=== PATIENT | female | born 1990 | race Caucasian/White ===

== ENCOUNTER 2017-05-26 17:56 | Observation (INO) | payer MEDICAID ==
[2017-05-26 17:56] VITALS: BMI 22.6
[2017-05-26 17:59] VITALS: TEMP 97.2; O2SAT 99
--- NOTE | 2017-05-26 18:26 | ED PDOC ---
HPI: Psych/Substance Abuse Time Seen by Provider: 05/26/17 18:04 Chief Complaint (Nursing): Alcohol Ingestion Additional Complaint(s): Patient is a 26 y/o F with hx of multiple visits for alcohol intoxication, [place] She admitted to EMS that she had drunk vodka. Patient smells of alcohol and is unable to provide additional history. Past Medical History Vital Signs: Last Vital Signs Temp 97.2 F L 05/26/17 17:57 Pulse 94 H 05/26/17 17:57 Resp 16 05/26/17 17:57 BP 95/51 L 05/26/17 17:57 Pulse Ox 99 05/26/17 17:57 - Medical History PMH: Anemia, Gastritis, HTN, Kidney Stones, Personality Disorder, Chronic Kidney Disease Denies: Diabetes, Hepatitis, HIV, Seizures, Sexually Transmitted Disease - Family History Family History: States: Unknown Family Hx - Immunization History Hx Tetanus Toxoid Vaccination: Yes (06/03/2013) Hx Influenza Vaccination: Yes Hx Pneumococcal Vaccination: No - Home Medications Home Medications: Ambulatory Orders Medication Instructions Recorded No Known Home Med 01/20/17 - Allergies Allergies/Adverse Reactions: Allergies Allergy/AdvReac Type Severity Reaction Status Date / Time Penicillins Allergy RASH Verified 01/20/17 19:45 Review of Systems Review Of Systems: ROS cannot be obtained secondary to pt's inabilty to answer questions. Physical Exam - Physical Exam Appears: Positive for: Well, Non-toxic (disheveled) Eye Exam: Positive for: Normal appearance, EOMI, PERRL Neck: Positive for: Normal, Supple Cardiovascular/Chest: Positive for: Regular Rate, Rhythm Respiratory: Positive for: Normal Breath Sounds. Negative for: Rhonchi, Stridor , Wheezing Gastrointestinal/Abdominal: Positive for: Soft. Negative for: Tenderness, Mass , Distended Extremity: Positive for: Normal ROM (spontaneous movement of b/l lower and upper extremities) - ECG O2 Sat by Pulse Oximetry: 99 Medical Decision Making Medical Decision Making: No signs of trauma and patient smells of alcohol. Will get CT head to r/o traumatic injury, fs and place patient on continuous monitor. Will monitor for clinical sobriety 19:00 FS:99. Will sign out to Dr. Arango to follow-up CT head, monitor and reevaluate when sober ED OBSERVATION Date of observation admission: 05/26/17 Time of observation admission: 18:26 - Observation admission statement Patient is being placed in observation because:: alcohol abuse - Goals of Observation Goals of observation are:: continue to monitor pending clinical sobriety Disposition - Clinical Impression Clinical Impression: Alcohol abuse with intoxication - Disposition Disposition Time: 18:26 Condition: FAIR
--- NOTE | 2017-05-26 19:15 | ED PDOC ---
- ECG O2 Sat by Pulse Oximetry: 99 Medical Decision Making Medical Decision Makin:00 Pt signed out to me by Dr. Celestino MD. Pending CT Head and clinical sobriety. CT HEAD FINDINGS: Artifacts: Streak artifact degrades image quality. Motion artifact degrades image quality. Brain: Ventricles are normal in size and configuration. There is no midline shift. There are no intra-axial or extra-axial mass lesions or areas of hemorrhage. There are no abnormal fluid collections. [place]-white differentiation is maintained. Ventricles: See above. Bones: Cranial vault is intact. Soft tissues: unremarkable Sinuses: There is no acute sinusitis. Ears and mastoids: Middle ears and mastoids are unremarkable Orbits: Orbital contents are unremarkable. IMPRESSION: Slightly limited by streak and motion, no acute intracranial abnormality Documented by Loan Caal, acting as a scribe for Alverto Arango MD All medical record entries made by the Scribe were at my direction and personally dictated by me. I have reviewed the chart and agree that the record accurately reflects my personal performance of the history, physical exam, medical decision making, and the department course for this patient. I have also personally directed, reviewed, and agree with the discharge instructions and disposition. Disposition Counseled Patient/Family Regarding: Studies Performed, Diagnosis, Need For Followup - Clinical Impression Clinical Impression: Alcohol abuse with intoxication - POA Present On Arrival: None - Disposition Disposition: Routine/Home Disposition Time: 21:45 Condition: IMPROVED
--- NOTE | 2017-05-26 20:19 | CT ---
EXAM: CT Head Without Intravenous Contrast CLINICAL HISTORY: 26 years old, female; Injury or trauma; Injury Unknown head trauma. ETOH; Initial encounter; Concussion / head injury; Consciousness not specified; Additional info: Alcohol abuse, unknown head trauma TECHNIQUE: Axial computed tomography images of the head/brain without intravenous contrast. This CT exam was performed using one or more of the following dose reduction techniques: automated exposure control, adjustment of the mA and/or kV according to patient size, and/or use of iterative reconstruction technique. Coronal and sagittal reformatted images were created and reviewed. EXAM DATE/TIME: 05/26/2017 6:26 PM COMPARISON: There are no prior studies for comparison. FINDINGS: Artifacts: Streak artifact degrades image quality. Motion artifact degrades image quality. Brain: Ventricles are normal in size and configuration. There is no midline shift. There are no intra-axial or extra-axial mass lesions or areas of hemorrhage. There are no abnormal fluid collections. [place]-white differentiation is maintained. Ventricles: See above. Bones: Cranial vault is intact. Soft tissues: unremarkable Sinuses: There is no acute sinusitis. Ears and mastoids: Middle ears and mastoids are unremarkable Orbits: Orbital contents are unremarkable. IMPRESSION: Slightly limited by streak and motion, no acute intracranial abnormality
[2017-05-26 21:56] VITALS: BP 91/55; PULSE 76; RESP 18
== END 2017-05-26 23:57 | disposition home or self-care (01) ==
LOC: H.ER 17:56 → H.EROBSV 18:26
PROVIDERS: ADMIT Emergency Medicine; ATTEND Emergency Medicine
DX: F10.129 Alcohol abuse with intoxication, unspecified (principal); F60.9 Personality disorder, unspecified; I12.9 Hypertensive chronic kidney disease with stage 1 through stage 4 chronic kidney disease, or unspecified chronic kidney disease; N18.9 Chronic kidney disease, unspecified

== ENCOUNTER 2018-03-29 16:58 | Emergency (ER) | payer MEDICAID ==
[2018-03-29 16:58] VITALS: BMI 24.7
[2018-03-29 17:06] VITALS: BP 111/69; PULSE 80; RESP 19; TEMP 98.3; O2SAT 100
--- NOTE | 2018-03-29 18:01 | ED PDOC ---
HPI: Psych/Substance Abuse Time Seen by Provider: 03/29/18 17:09 Chief Complaint (Nursing): Psychiatric Evaluation Chief Complaint (Provider): Hearing voices History Per: Patient History/Exam Limitations: no limitations Onset/Duration Of Symptoms: Hrs Current Symptoms Are (Timing): Gone Now Additional Complaint(s): 27 yo female with no medical problems presents after an episode of hearing voices. Pt states she did not know what they were saying but they stopped. Pt states she has not had similar in the past. Denies psychiatric history. Past Medical History Reviewed: Historical Data, Nursing Documentation, Vital Signs Vital Signs: Last Vital Signs Temp 98.3 F 03/29/18 17:03 Pulse 80 03/29/18 17:03 Resp 19 03/29/18 17:03 BP 111/69 03/29/18 17:03 Pulse Ox 100 03/29/18 17:03 - Medical History PMH: Anemia, Gastritis, Kidney Stones, Personality Disorder, Chronic Kidney Disease Denies: Diabetes, Hepatitis, HIV, HTN, Seizures, Sexually Transmitted Disease - Surgical History Surgical History: No Surg Hx - Family History Family History: States: Unknown Family Hx - Living Arrangements Living Arrangements: With Family - Social History Current smoker - smoking cessation education provided: No - Immunization History Hx Tetanus Toxoid Vaccination: Yes (06/03/2013) Hx Influenza Vaccination: No Hx Pneumococcal Vaccination: No - Home Medications Home Medications: Ambulatory Orders Medication Instructions Recorded Clotrimazole 1% Cream [Lotrimin 1%] 1 appl TP BID #60 g 12/16/17 Permethrin 5% [Permethrin 5% Cream] 60 gm EXT ONCE #1 tube 12/16/17 Amoxicillin 875 mg PO BID #14 tablet 03/16/18 Ibuprofen [Motrin] 600 mg PO Q6 PRN #20 tab 03/16/18 - Allergies Allergies/Adverse Reactions: Allergies Allergy/AdvReac Type Severity Reaction Status Date / Time latex Allergy Verified 03/16/18 05:09 Latex, Natural Rubber Allergy Verified 12/15/17 21:55 Penicillins Allergy RASH Verified 07/11/17 10:04 Review of Systems ROS Statement: Except As Marked, All Systems Reviewed And Found Negative Constitutional: Negative for: Fever, Chills Cardiovascular: Negative for: Chest Pain Respiratory: Negative for: Cough, Shortness of Breath Gastrointestinal: Negative for: Abdominal Pain Genitourinary Female: Negative for: Dysuria Musculoskeletal: Negative for: Neck Pain Physical Exam - Reviewed Nursing Documentation Reviewed: Yes Vital Signs Reviewed: Yes - Physical Exam Appears: Positive for: Well, Non-toxic, No Acute Distress Head Exam: Positive for: ATRAUMATIC, NORMAL INSPECTION, NORMOCEPHALIC Skin: Positive for: Normal Color, Warm, DRY Eye Exam: Positive for: Normal appearance ENT: Positive for: Normal ENT Inspection Neck: Positive for: Normal, Painless ROM Cardiovascular/Chest: Positive for: Regular Rate, Rhythm Respiratory: Positive for: Normal Breath Sounds. Negative for: Accessory Muscle Use, Respiratory Distress Gastrointestinal/Abdominal: Positive for: Normal Exam, Soft Back: Positive for: Normal Inspection Extremity: Positive for: Normal ROM Neurologic/Psych: Positive for: Alert, Oriented - ECG O2 Sat by Pulse Oximetry: 100 Pulse Ox Interpretation: Normal Medical Decision Making Medical Decision Makin - Pt states she is feeling fine and no longer wants to wait for psychiatric evaluation. Denies SI/HI. Alert and oriented x 3. Disposition - Clinical Impression Clinical Impression: Hearing voices - Patient ED Disposition Is Patient to be Admitted: No Counseled Patient/Family Regarding: Diagnosis, Need For Followup - Disposition Disposition: Routine/Home Disposition Time: 18:15 Condition: STABLE
== END 2018-03-29 18:20 | disposition home or self-care (01) ==
LOC: H.ER 16:58
DX: R44.0 Auditory hallucinations (principal); Z00.8 Encounter for other general examination; N18.9 Chronic kidney disease, unspecified; Z87.442 Personal history of urinary calculi; Z88.0 Allergy status to penicillin

== ENCOUNTER 2018-03-30 17:38 | Inpatient (IN) | payer MEDICAID ==
[2018-03-30 17:38] VITALS: BMI 24.7
[2018-03-30 17:44] VITALS: O2SAT 99
--- NOTE | 2018-03-30 18:28 | ED PDOC ---
HPI: Psych/Substance Abuse Time Seen by Provider: 03/30/18 17:40 Chief Complaint (Nursing): Psychiatric Evaluation Chief Complaint (Provider): Psychiatric Evaluation History Per: Patient History/Exam Limitations: no limitations Onset/Duration Of Symptoms: Days Current Symptoms Are (Timing): Still Present Associated Symptoms: denies: Suicidal Thoughts Additional Complaint(s): Enoc Melchor is a 27 year old female with a past medical history of gastritis , renal disease, and psychological disorders, who was brought to the ER for evaluation of auditory hallucinations, s/p being [place] acting strange [place] public [place]. She denies any suicidal or homicidal ideation along with any other medical complaints. Of note, patient was seen in this ED yesterday morning for the same complaint but at the time did not want to stay for a crisis evaluation. Today, she is seen wearing the same clothes as yesterday and is agreeable to evaluation. PMD: none provided Past Medical History Reviewed: Historical Data, Nursing Documentation, Vital Signs Vital Signs: Last Vital Signs Temp 97.4 F L 03/30/18 17:39 Pulse 114 H 03/30/18 17:39 Resp 18 03/30/18 17:39 BP 125/66 03/30/18 17:39 Pulse Ox 99 03/30/18 17:39 - Medical History PMH: Anemia, Gastritis, Kidney Stones, Personality Disorder, Chronic Kidney Disease Denies: Diabetes, Hepatitis, HIV, HTN, Seizures, Sexually Transmitted Disease - Surgical History Surgical History: No Surg Hx - Family History Family History: States: Unknown Family Hx - Social History Current smoker - smoking cessation education provided: No Alcohol: None Drugs: Denies - Immunization History Hx Tetanus Toxoid Vaccination: Yes (06/03/2013) Hx Influenza Vaccination: No Hx Pneumococcal Vaccination: No - Home Medications Home Medications: Ambulatory Orders Medication Instructions Recorded Clotrimazole 1% Cream [Lotrimin 1%] 1 appl TP BID #60 g 12/16/17 Permethrin 5% [Permethrin 5% Cream] 60 gm EXT ONCE #1 tube 12/16/17 Amoxicillin 875 mg PO BID #14 tablet 03/16/18 Ibuprofen [Motrin] 600 mg PO Q6 PRN #20 tab 03/16/18 - Allergies Allergies/Adverse Reactions: Allergies Allergy/AdvReac Type Severity Reaction Status Date / Time latex Allergy Verified 03/16/18 05:09 Latex, Natural Rubber Allergy Verified 12/15/17 21:55 Penicillins Allergy RASH Verified 07/11/17 10:04 Review of Systems ROS Statement: Except As Marked, All Systems Reviewed And Found Negative Psych: Positive for: Other ((+) auditory hallucinations, (-) homicidal ideation) . Negative for: Suicidal ideation Physical Exam - Reviewed Nursing Documentation Reviewed: Yes Vital Signs Reviewed: Yes - Physical Exam Appears: Positive for: Non-toxic, No Acute Distress Head Exam: Positive for: ATRAUMATIC, NORMAL INSPECTION, NORMOCEPHALIC Skin: Positive for: Normal Color, Warm, DRY Eye Exam: Positive for: Normal appearance Neck: Positive for: Normal Cardiovascular/Chest: Positive for: Regular Rate, Rhythm Respiratory: Positive for: Normal Breath Sounds. Negative for: Respiratory Distress Gastrointestinal/Abdominal: Positive for: Normal Exam, Soft. Negative for: Tenderness Back: Positive for: Normal Inspection Extremity: Positive for: Normal ROM. Negative for: Deformity, Swelling Neurologic/Psych: Positive for: Alert, Oriented. Negative for: Motor/Sensory Deficits - Laboratory Results Result Diagrams: 03/30/18 19:15 03/30/18 19:15 - ECG O2 Sat by Pulse Oximetry: 99 (RA) Pulse Ox Interpretation: Normal Medical Decision Making Medical Decision Making: Time: 18:13 Plan: --Alcohol Serum --CMP --Urine Drug Screen --Crisis Evaluation --ED Urine --CBC --Urinalysis Urine is not clean catch and patient currently menstrating. Recommend repeat clean catch. Scribe Attestation: Documented by Marcia Dunham, acting as a scribe for June Merino PA-C. Provider Scribe Attestation: All medical record entries made by the Scribe were at my direction and personally dictated by me. I have reviewed the chart and agree that the record accurately reflects my personal performance of the history, physical exam, medical decision making, and the department course for this patient. I have also personally directed, reviewed, and agree with the discharge instructions and disposition. Disposition - Clinical Impression Clinical Impression: Schizophrenia - Patient ED Disposition Is Patient to be Admitted: Yes Counseled Patient/Family Regarding: Diagnosis, Need For Followup - Disposition Disposition Time: 21:10 Condition: GOOD Instructions: Schizophrenia (DC) Forms: [employer] ([place])
[2018-03-30 19:04] LABS: SQUAMOUS EPITHIAL 16 /hpf (0-5); URINE BACTERIA RARE (<OCC); URINE BILIRUBIN NEGATIVE (NEGATIVE); URINE BLOOD LARGE (NEGATIVE); URINE CLARITY CLOUDY (Clear); URINE COLOR AMBER (YELLOW); URINE GLUCOSE (UA) NEG (Normal); URINE LEUKOCYTE ESTERASE MOD Leu/uL (Negative); URINE PROTEIN 100 mg/dL (NEGATIVE)
[2018-03-30 19:23] LABS: BASO % 0.3 % (0.0-2.0); LYMPH # 1.1 K/uL (1.0-4.3); LYMPH % 10.2 % (20.0-40.0); MEAN CELL VOLUME 84.3 fl (81.0-99.0); MEAN CORPUSCULAR HEMOGLOBIN 27.9 pg (27.0-31.0); MEAN CORPUSCULAR HGB CONC 33.1 g/dL (33.0-37.0); MEAN PLATELET VOLUME 7.6 fl (7.2-11.7); MONO # 0.6 K/uL (0.0-0.8); MONO % 5.3 % (0.0-10.0); NEUT # 8.9 K/uL (1.8-7.0); NEUT % 84.2 % (50.0-75.0); RBC 3.93 Mil/uL (3.80-5.20); RED CELL DISTRIBUTION WIDTH 17.5 % (11.5-14.5); WHITE BLOOD COUNT 10.6 K/uL (4.8-10.8)
[2018-03-30 19:30] LABS: BARBITURATES, UR NEGATIVE (NEGATIVE); BENZODIAZEPINES, UR NEGATIVE (NEGATIVE); OPIATES, UR NEGATIVE (NEGATIVE); PHENCYCLIDINE, UR NEGATIVE (NEGATIVE)
[2018-03-30 19:40] LABS: ALB/GLOB RATIO 1.4 (1.0-2.1); ALBUMIN 4.6 g/dL (3.5-5.0); ALT/SGPT 40 U/L (9-52); AST/SGOT 35 U/L (14-36); BLOOD UREA NITROGEN 14 mg/dl (7-17); CALCIUM 9.6 mg/dL (8.4-10.2); GFR AFRICAN-AMERICAN > 60; GFR NON-AFRICAN AMERICAN > 60
[2018-03-30] MEDS ORDERED: DiphenhydrAMINE 50 mg/ml Inj IM PRN (22:27)
[2018-03-30] MEDS ORDERED: Magnesium Hydroxide Susp 30 ml UD PO PRN (22:27)
[2018-03-30] MEDS ORDERED: Alum-Mag Hydrox-Simethicone Susp (30 mL) PO PRN (22:27)
--- NOTE | 2018-03-30 22:46 | PCM.BM ---
<Marcos Catherine J - Last Filed: 03/30/18 22:43> Treatment Plan Problems - Problems identified on initial assessmt Auditory Hallucinations Date Initiated: 03/30/18 Time Initiated: 22:44 Assessment reference: NA Status: Active Treatment assets and liabiliti Patient Assests: cooperative, physically healthy, negotiates basic needs, good past tx response Patient Liabilities: financial problems, poor support system, substance abuse, legal issue (assault charge, homelessness) - Milieu Protocol Maintain good personal hygiene: daily Remind patient to perform daily oral care , every other day Encourage regular showers, other Assist patient to perform ADL 's (if needed) Conduct patient checks and document Observation sheet: Q15 minutes Maintain personal safety: every shift Educate patient to report safety concerns to staff, every shift Monitor environment for contraband/sharps Medication safety: Monitor for expected outcome, potential side effects: every shift, Assess barriers to learning: every shift, Assess readiness for medication education: every shift <Timothy Duckworth J - Last Filed: 04/02/18 16:24> Family Contact Family involvement: Famliy/SO not involved Family contact: Patient declines to allow family contact at present Family contact name: Pt denied. - Goals for Treatment Patient goals for treatment: Pt requested she wants to leave so she can get a job and apply for welfare. Discharge/Continuing Care - Education Needs Education Needs: Patient Medication, Patient Diagnosis/Disease Process, Patient Coping Skills, Patient Community resources, Patient Aftercare Safety Plan - Discharge Discharge Criteria: Tolerates medication w/o severe side effects, Free of Suicidal thoughts, Free of paranoid thoughts, Free of agitation, Normal sleep pattern, Ability to care for self, Reduction of target symptoms Discharge to:: Home, Long Term - Additional Comments 04/02/18 16:25 Pt remains internally preoccupied with poor insight into her illness. Pt continues to pace unit, make poor eye-contact, and her speech, affect, and movements lack any spontaneity. Pt able to contract for safety and denies delusions, hallucinations or paranoia at present. - Treatment Team Participation Discussed with Family/SO: No Was Patient/Family/SO present at Treatment Team Meeting: Yes <Anshul Hong - Last Filed: 04/07/18 14:12> - Diagnosis (1) Psychosis Status: Acute Interventions: pharmacotherapy, psychotherapy 04/07/18 14:11
[2018-03-31 06:12] LABS: HDL CHOLESTEROL 97 MG/DL (30-70)
[2018-03-31 06:29] LABS: T4 7.16 ug/dl (5.5-11.0)
[2018-03-31 06:53] LABS: LDL CHOLESTEROL < 30 mg/dL (0-129)
[2018-03-31] MEDS ORDERED: Risperidone M TAB 2 MG PO STA (09:51)
--- NOTE | 2018-03-31 19:11 | CARD ---
APPROVED REPORT EKG Measurement Heart [id number] <Conclusion> Normal sinus rhythm Normal ECG
[2018-03-31] MEDS: Risperidone M TAB 2 MG PO SCH (22:01)
[2018-04-01] MEDS: Risperidone M tab 1 MG PO SCH (09:46)
--- NOTE | 2018-04-01 15:05 | PCM.PYCHPN ---
Psychiatric Progress Note - Psychiatric Progress Note Patient seen today, length of contact: pt evaluated discussed with team chart reviewd Patient Chief Complaint: I am 27 I do not need my family Problems Identified/Issues Discussed: pt seen on the unit, flat affect, poor eye contact, pacing around , under productive speech , reported by staff to have poor sleep ,not interacting with staff or other patients, requesting discharge, no insight into illness, refusing to give any collateral information, pt presenting with thought blocking , appears internally preoccupied , denied any command hallucinations , denied suicidal or homicidal ideation DSM 5 Symptoms Update: major depression with psychosis CANNABIS INDUCED PSYCHOSIS PTSD Medication Change: Yes (START REMERON) Medical Record Reviewed: Yes Mental Status Examination - Cognitive Function Orientation: Person Memory: Impaired Attention: Poor Concentration: Poor Association: Loose Fund of Knowledge: Poor Decription of patient's judgement and insights: poor insight and judgment - Mood Mood: Depressed - Affect Affect: Blunted, Flat - Speech Speech: Soft - Formal Thought Process Formal Thought Process: Paranoia Psychotic Thoughts and Behaviors: internally preoccupied , denied command halluciantions - Suicidal Ideation Suicidal Ideation: No - Homicidal Ideation Homicidal Ideation: No Goal/Treatment Plan - Goal/Treatment Plan Need for Continued Stay: Remain at risks for inpatient hospitalization, Severe depression anxiety, Discharge may exacerbated symptoms Progress Toward Problem(s) and Goals/Treatment Plan: risperidone 1mg daily and 2mg qhs, cogentin 0.5mg bid remeron 7.5mg qhs monitor pt for psychopharmacological effects and side effect profile Estimated Date of D/C: 04/15/18
[2018-04-02] MEDS: Risperidone M tab 1 MG PO SCH (08:56)
--- NOTE | 2018-04-02 15:44 | PCM.PYCHPN ---
Psychiatric Progress Note - Psychiatric Progress Note Patient seen today, length of contact: pt evaluated discussed with team chart reviewd Patient Chief Complaint: I do not hear the voice any more can I leave Problems Identified/Issues Discussed: pt evaluated with tretament team, continues to be guarded, presenting with thought blocking, appears internally preoccupied ,limited insight nto illness, requesting discharge, underproductive speech and flat affect, continuously pacing, with rigid posture denied any command hallucinations , denied suicidal or homicidal ideation DSM 5 Symptoms Update: psychotic disorder rule out schizophrenia PTSD Medication Change: Yes (START REMERON) Medical Record Reviewed: Yes Mental Status Examination - Cognitive Function Orientation: Person Memory: Impaired Attention: Poor Concentration: Poor Association: Loose Fund of Knowledge: Poor Decription of patient's judgement and insights: poor insight and judgment - Mood Mood: Depressed - Affect Affect: Blunted, Flat - Speech Speech: Soft - Formal Thought Process Formal Thought Process: Paranoia Psychotic Thoughts and Behaviors: internally preoccupied , denied command halluciantions - Suicidal Ideation Suicidal Ideation: No - Homicidal Ideation Homicidal Ideation: No Goal/Treatment Plan - Goal/Treatment Plan Need for Continued Stay: Remain at risks for inpatient hospitalization, Severe depression anxiety, Discharge may exacerbated symptoms Progress Toward Problem(s) and Goals/Treatment Plan: risperidone 2mg daily and 2mg qhs, cogentin 0.5mg bid remeron 7.5mg qhs CPK NOTED 294, will follow up for any possible increase monitor pt for psychopharmacological effects and side effect profile Estimated Date of D/C: 04/15/18
--- NOTE | 2018-04-02 19:19 | CP.PCM.CON ---
History of Present Illness - History of Present Illness History of Present Illness: CC: Depression This is a 27 year old female with pmh of gastritis, nephrolithiasis, CKD, hx anemia in the past, presenting to the ED after having aduitory hallucinations. She was later admitted [facility] for major depression with psychosis. Medical consultation is requested. The patient states to me she has no medical problems, although when questioned about her gastritis and nephrolithiasis in the past she does admit to these but denies any symptoms currently. She denies any kidney problems in the past. The patient has a flat affect and is a difficult historian. Patient denies chest pain, shortness of breath, fevers, chills, nausea, vomiting, diarrhea, headache. All of the patient's questions were answered at the bedside. Review of Systems - Review of Systems Review of Systems: A 12 point review of systems was conducted and found to be negative other than what was mentioned in the HPI. Past Patient History - Infectious Disease Hx of Infectious Diseases: None - Past Medical History & Family History Past Medical History?: Yes Past Family History: Reviewed and not pertinent - Past Social History Smoking Status: Unknown If Ever Smoked Alcohol: None Drugs: Cannabis - CARDIAC Hx Cardiac Disorders: No Hx Hypertension: No - PULMONARY Hx Respiratory Disorders: No Hx Tuberculosis: No - NEUROLOGICAL Hx Neurological Disorder: No Hx Seizures: No - HEENT Hx HEENT Problems: Yes (bilateral torn earlobes) - RENAL Hx Chronic Kidney Disease: No - ENDOCRINE/METABOLIC Hx Endocrine Disorders: No - HEMATOLOGICAL/ONCOLOGICAL Hx Anemia: Yes Hx Human Immunodeficiency Virus (HIV): No - INTEGUMENTARY Hx Dermatological Problems: Yes Hx Alexander: Yes (on face from hair removing chemical) - MUSCULOSKELETAL/RHEUMATOLOGICAL Hx Musculoskeletal Disorders: No - GASTROINTESTINAL Hx Gastrointestinal Disorders: Yes Hx Gastritis: Yes - GENITOURINARY/GYNECOLOGICAL Hx Genitourinary Disorders: No Hx Sexually Transmitted Disorders: No - PSYCHIATRIC Hx Schizophrenia: Yes Hx Substance Use: (pt denied but UDS + Marijuana) - SURGICAL HISTORY Hx Surgeries: No - ANESTHESIA Hx Anesthesia: No Meds Allergies/Adverse Reactions: Allergies Allergy/AdvReac Type Severity Reaction Status Date / Time latex Allergy Verified 03/16/18 05:09 Latex, Natural Rubber Allergy Verified 12/15/17 21:55 Penicillins Allergy RASH Verified 07/11/17 10:04 - Medications Medications: Current Medications Acetaminophen (Tylenol 325mg Tab) 650 mg PO Q4 PRN PRN Reason: pain level 4-7 Last Admin: 04/01/18 06:53 Dose: 650 mg Al Hydrox/Mg Hydrox/Simethicone (Maalox Plus 30 Ml) 30 ml PO Q4 PRN PRN Reason: Dyspepsia Benztropine Mesylate (Cogentin) 0.5 mg PO [facility] Last Admin: 04/01/18 21:08 Dose: 0.5 mg Benztropine Mesylate (Cogentin) 0.5 mg PO DAILY [facility] Diphenhydramine HCl (Benadryl) 50 mg IM Q6 PRN PRN Reason: Extrapyramidal S/S Unable PO Diphenhydramine HCl (Benadryl) 50 mg PO Q6 PRN PRN Reason: Extrapyramidal Symptoms Last Admin: 04/01/18 02:35 Dose: 50 mg Diphenhydramine HCl (Benadryl) 50 mg PO HS PRN PRN Reason: Sleep Haloperidol (Haldol) 5 mg PO Q4 PRN PRN Reason: Agitation Last Admin: 04/01/18 02:34 Dose: 5 mg Haloperidol Lactate (Haldol) 5 mg IM Q4 PRN PRN Reason: Agitation, Unable to Take PO Lorazepam (Ativan) 2 mg IM Q4 PRN PRN Reason: Anxiety/Agitation,Unable PO Lorazepam (Ativan) 1 mg PO TID PRN PRN Reason: Anxiety Magnesium Hydroxide (Milk Of Magnesia) 30 ml PO HS PRN PRN Reason: Constipation Mirtazapine (Remeron) 7.5 mg PO [facility] Last Admin: 04/01/18 21:08 Dose: 7.5 mg Risperidone (Risperdal M-Tab) 2 mg PO [facility] Last Admin: 03/31/18 22:01 Dose: 2 mg Risperidone (Risperdal M-Tab) 2 mg PO DAILY [facility] Physical Exam - Additional Findings Additional findings: Physical exam: Constitutional- cooperative, awake, alert Head- NCAT, PERRL Eye- PERRL, EOMI ENT- normal exam, MMM. Neck- normal inspection, supple, no JVD Respiratory- CTAB, no wheezes rales rhonchi Cardiovascular- RRR, +S1, +S2 no MRG GI/Abdominal- normal bowel sounds, soft, no mass, no hsm Skin- warm, dry Extremities Exam- normal capillary refill, normal inspection Neurological Exam- alert, awake, oriented Psych- depressed mood, flat affect Results - Vital Signs Recent Vital Signs: Last Vital Signs Temp 97.0 F L 04/02/18 09:00 Pulse 84 04/02/18 09:00 Resp 18 04/02/18 09:00 BP 116/56 L 04/02/18 09:00 Pulse Ox 99 03/30/18 22:18 - Labs Result Diagrams: 03/30/18 19:15 03/30/18 19:15 Labs: Laboratory Results - last 24 hr 04/02/18 13:35 Total Creatine Kinase 294 H Assessment & Plan - Assessment and Plan (Free Text) Plan: ASSESSMENT/PLAN 1) Chronic anemia (likely with possible hx kidney disease), mild - stable 2) Hx nephrolithiasis - denies any current symptoms of dysuria - urinalysis contaminated but shows no evidence of UTI 3) CKD hx? - Patient has normal renal function, doubt this is a true diagnosis. Patient also denies this diagnosis. 4) Depression with acute psychosis - management as per psych
[2018-04-02] MEDS: Risperidone M TAB 2 MG PO SCH (21:14)
[2018-04-03] MEDS: Risperidone M TAB 2 MG PO SCH ×2 (09:16→21:06)
--- NOTE | 2018-04-03 10:16 | PCM.PYCHPN ---
Psychiatric Progress Note - Psychiatric Progress Note Patient seen today, length of contact: Patient evaluated, case discussed with team, chart reviewed Patient Chief Complaint: "I'm fine." Problems Identified/Issues Discussed: Patient is guarded w/ continuity writer and minimizing all psychiatric symptoms. She denies depression/anxiety/AH/VH/paranoia. She seems to have thought blocking and seems internally preoccupied. She denies adverse effects to medications. Diagnostic Results: CPK ; CPK Medication Change: No Medical Record Reviewed: Yes Consults ordered or reviewed: Medicine consult Mental Status Examination - Cognitive Function Orientation: Person Memory: Impaired Attention: Poor Concentration: Poor Association: Loose Fund of Knowledge: Poor Decription of patient's judgement and insights: Poor I/J - Mood Mood: Neutral (Denies depression/anxiety) - Affect Affect: Flat, Depressed - Speech Speech: Soft - Formal Thought Process Formal Thought Process: Paranoia, Other (Poverty of speech) Psychotic Thoughts and Behaviors: +Patient likely paranoid; +Internally preoccupied - Suicidal Ideation Suicidal Ideation: No - Homicidal Ideation Homicidal Ideation: No Goal/Treatment Plan - Goal/Treatment Plan Need for Continued Stay: Remain at risks for inpatient hospitalization, Severe depression anxiety, Discharge may exacerbated symptoms Progress Toward Problem(s) and Goals/Treatment Plan: Schizophrenia -Continue Risperdal, Cogentin, Remeron -CPK ; CPK ; will recheck CPK to make sure if continues to decrease -Medicine consult -Psychoeducation -Individual and group therapy -Disposition planning Estimated Date of D/C: 04/15/18
[2018-04-04] MEDS: Risperidone M TAB 2 MG PO SCH ×2 (09:14→21:19)
--- NOTE | 2018-04-04 10:40 | PCM.PYCHPN ---
Psychiatric Progress Note - Psychiatric Progress Note Patient seen today, length of contact: Patient evaluated, case discussed with team, chart reviewed Patient Chief Complaint: "I'm fine." Problems Identified/Issues Discussed: Patient would like to be discharged. She states that she feels fine and does not think she need to be in the hospital. She is guarded w/ underwriter mortgage loan and minimizing all psychiatric symptoms. She denies depression/anxiety/AH/VH/ paranoia. She seems to have thought blocking and seems internally preoccupied. She denies adverse effects to medications. Diagnostic Results: CPK ; CPK ; CPK Medication Change: No Medical Record Reviewed: Yes Consults ordered or reviewed: Medicine consult Mental Status Examination - Cognitive Function Orientation: Person, Place, Situation, Time Memory: Intact Attention: Poor Concentration: Poor Association: Loose Fund of Knowledge: Poor Decription of patient's judgement and insights: Poor I/J - Mood Mood: Neutral (Denies depression/anxiety) - Affect Affect: Flat - Speech Speech: Soft - Formal Thought Process Formal Thought Process: Paranoia, Other (Poverty of speech) Psychotic Thoughts and Behaviors: +Patient likely paranoid; +Internally preoccupied - Suicidal Ideation Suicidal Ideation: No - Homicidal Ideation Homicidal Ideation: No Goal/Treatment Plan - Goal/Treatment Plan Need for Continued Stay: Remain at risks for inpatient hospitalization, Severe depression anxiety, Discharge may exacerbated symptoms Progress Toward Problem(s) and Goals/Treatment Plan: Schizophrenia -Continue Risperdal, Cogentin, Remeron -CPK now normal: CPK ; CPK ; CPK -Medicine consult -Psychoeducation -Individual and group therapy -Disposition planning Estimated Date of D/C: 04/15/18
[2018-04-05] MEDS: Risperidone M TAB 2 MG PO SCH ×2 (08:32→21:10)
--- NOTE | 2018-04-05 17:30 | PCM.PYCHPN ---
Psychiatric Progress Note - Psychiatric Progress Note Patient seen today, length of contact: Patient evaluated, case discussed with team, chart reviewed Patient Chief Complaint: I want to go back to the retirement Problems Identified/Issues Discussed: pt evaluated , speech more productive, more interactive with staff and other patients, less isolative in her room, continues to have limited insight into her illness, requesting discharge, motivational therapy provided in reference to cannabis use , pt continues to have thought blocking, affect less flat, and posture less rigid denied any command hallucinations , denied suicidal or homicidal ideation 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 Medication Change: No Medical Record Reviewed: Yes Mental Status Examination - Cognitive Function Orientation: Person, Place, Situation, Time Memory: Intact Attention: Poor Concentration: Poor Association: Loose Fund of Knowledge: Poor - Mood Mood: Neutral (Denies depression/anxiety) - Affect Affect: Flat - Speech Speech: Soft - Formal Thought Process Formal Thought Process: Paranoia, Other (Poverty of speech) - Suicidal Ideation Suicidal Ideation: No - Homicidal Ideation Homicidal Ideation: No Goal/Treatment Plan - Goal/Treatment Plan Need for Continued Stay: Remain at risks for inpatient hospitalization, Severe depression anxiety, Discharge may exacerbated symptoms Progress Toward Problem(s) and Goals/Treatment Plan: risperidone 2mg daily and 2mg qhs, cogentin 0.5mg bid increase remeron 15mg qhs monitor pt for psychopharmacological effects and side effect profile Estimated Date of D/C: 04/15/18
[2018-04-06] MEDS: Risperidone M TAB 2 MG PO SCH ×2 (08:38→21:05)
--- NOTE | 2018-04-06 14:20 | PCM.PSYCH ---
Initial Psychiatric Evaluation - Initial Psychiatric Evaluation Type of Admission: Voluntary Legal Status: Capacity Chief Complaint (in patient's own words): I want somebody to hold me against the bed Patient's Reaction to Hospitalization: pt signed voluntary admission form History of Present Illness and Precipitating Events: pt with previous diagnosis of psychotic disorder, recently discharged from [facility] [place] after involuntary admission for about a week due to disorganized behavior, non compliant with treatment, brought to ER by EMS as she was found by police exhibiting disorganized behavior in public pt on the unit presenting with disorganized thought process stating her back hurts as somebody is doing magic on her, she has paucity of speech with thought blocking , appears internally preoccupied responding to internal stimuli, pt denied command hallucinations, has no insight into illness requestiondg discharge , denied suicidal or homicidal ideations urine toxicology positive for cannabis Current Medications: Active Medications Generic Name Dose Route Start Last Admin Trade Name Freq PRN Reason Stop Dose Admin Acetaminophen 650 mg 03/30/18 22:27 03/31/18 09:09 Tylenol 325mg Tab PO 650 mg Q4 PRN Administration pain level 4-7 Al Hydrox/Mg Hydrox/Simethicone 30 ml 03/30/18 22:27 Maalox Plus 30 Ml PO Q4 PRN Dyspepsia Benztropine Mesylate 0.5 mg 03/31/18 22:00 Cogentin PO HS [place] Diphenhydramine HCl 50 mg 03/30/18 22:27 Benadryl IM Q6 PRN Extrapyramidal S/S Unable PO Diphenhydramine HCl 50 mg 03/30/18 22:27 Benadryl PO Q6 PRN Extrapyramidal Symptoms Diphenhydramine HCl 50 mg 03/30/18 22:33 Benadryl PO HS PRN Sleep Haloperidol 5 mg 03/30/18 22:27 Haldol PO Q4 PRN Agitation Haloperidol Lactate 5 mg 03/30/18 22:27 Haldol IM Q4 PRN Agitation, Unable to Take PO Lorazepam 2 mg 03/30/18 22:27 Ativan IM Q4 PRN Anxiety/Agitation,Unable PO Lorazepam 2 mg 03/30/18 22:27 Ativan PO Q4 PRN Anxiety/Agitation Magnesium Hydroxide 30 ml 03/30/18 22:27 Milk Of Magnesia PO HS PRN Constipation Risperidone 1 mg 04/01/18 09:00 Risperdal M-Tab PO DAILY [place] Risperidone 2 mg 03/31/18 22:00 Risperdal M-Tab PO HS [place] Past Psychiatric History - Past Psychiatric History Pertinent Medical Hx (Current Medical&Sleep Prob, Allergies): Allergies Allergy/AdvReac Type Severity Reaction Status Date / Time latex Allergy Verified 03/16/18 05:09 Latex, Natural Rubber Allergy Verified 12/15/17 21:55 Penicillins Allergy RASH Verified 07/11/17 10:04 Clotrimazole 1% Cream [Lotrimin 1%] 1 appl TP BID #60 g 12/16/17 Permethrin 5% [Permethrin 5% Cream] 60 gm EXT ONCE #1 tube 12/16/17 Amoxicillin 875 mg PO BID #14 tablet 03/16/18 Ibuprofen [Motrin] 600 mg PO Q6 PRN #20 tab 03/16/18 Risperidone [Risperdal] 2 mg PO BID 03/30/18
--- NOTE | 2018-04-06 14:35 | PCM.PYCHPN ---
Psychiatric Progress Note - Psychiatric Progress Note Patient seen today, length of contact: Patient evaluated, case discussed with team, chart reviewed Patient Chief Complaint: I want to leave Problems Identified/Issues Discussed: pt evaluated , requesting to be discharged, limited insight into illness, continues to present with thought blocking and appears to be internally preoccupied, appears responding to internal stimuli, pt refusing any after care , continues torefuse to provide any information for family members minimizing her symptoms and justifying her physical aggression towards the lady on the street stating she was a monster , denied any command hallucinations , denied suicidal or homicidal ideation DSM 5 Symptoms Update: psychotic disorder rule out schizophrenia Medication Change: No Medical Record Reviewed: Yes Mental Status Examination - Cognitive Function Orientation: Person, Place, Situation, Time Memory: Intact Attention: Poor Concentration: Poor Association: Loose Fund of Knowledge: Poor - Mood Mood: Neutral (Denies depression/anxiety) - Affect Affect: Flat - Speech Speech: Soft - Formal Thought Process Formal Thought Process: Paranoia, Other (Poverty of speech) Psychotic Thoughts and Behaviors: pt internally preoccupied with thought blockimg, appears responding to internal stimuli - Suicidal Ideation Suicidal Ideation: No - Homicidal Ideation Homicidal Ideation: No Goal/Treatment Plan - Goal/Treatment Plan Need for Continued Stay: Remain at risks for inpatient hospitalization, Severe depression anxiety, Discharge may exacerbated symptoms Progress Toward Problem(s) and Goals/Treatment Plan: risperidone 2mg daily and 2mg qhs, cogentin 0.5mg bid remeron 15mg qhs pt requesting to be discharged, signing 48 hour notice patient has no insight into illness , refusing after care , has history of violence in public pt will referred for screening for involuntary admission for continuity of care and further stabilization Estimated Date of D/C: 04/15/18
[2018-04-07] MEDS: Risperidone M TAB 2 MG PO SCH ×2 (08:46→21:06)
--- NOTE | 2018-04-07 14:43 | PCM.PYCHPN ---
Psychiatric Progress Note - Psychiatric Progress Note Patient seen today, length of contact: Patient evaluated, case discussed with team, chart reviewed Patient Chief Complaint: I am doing better and I will go to my appointments Problems Identified/Issues Discussed: pt evaluated , requesting to be discharged,, pt was screened for involuntary admission due to poor insight into illness and possibility of non compliance pt however was not found to meet criteria for involuntary admission, pt signed 48hours requesting discharge she denied any current suicidal or homicidal ideations, denied perceptual disturbances, compliant with medications, no reported side effects DSM 5 Symptoms Update: schizophrenia cannabis abuse Medication Change: No Medical Record Reviewed: Yes Mental Status Examination - Cognitive Function Orientation: Person, Place, Situation, Time Memory: Intact Attention: WNL Concentration: WNL Association: WNL Fund of Knowledge: Poor Decription of patient's judgement and insights: poor insight and judgment - Mood Mood: Neutral (Denies depression/anxiety) - Affect Affect: Flat - Speech Speech: Soft - Formal Thought Process Formal Thought Process: Circumstantial, Other (Poverty of speech) Psychotic Thoughts and Behaviors: pt denied any current perceptual disturbances - Suicidal Ideation Suicidal Ideation: No - Homicidal Ideation Homicidal Ideation: No Goal/Treatment Plan - Goal/Treatment Plan Need for Continued Stay: Remain at risks for inpatient hospitalization, Severe depression anxiety, Discharge may exacerbated symptoms Progress Toward Problem(s) and Goals/Treatment Plan: risperidone 2mg daily and 2mg qhs, cogentin 0.5mg bid remeron 15mg qhs Estimated Date of D/C: 04/15/18
[2018-04-08] MEDS: Risperidone M TAB 2 MG PO SCH (08:22)
[2018-04-08] MEDS ORDERED: Risperidone M TAB 2 MG PO SCH ×2 (09:00→22:00)
[2018-04-08 09:30] VITALS: BP 108/65; PULSE 103; RESP 20; TEMP 96.9
--- NOTE | 2018-04-08 12:28 | PCM.PYCHDC ---
Mental Status Examination - Mental Status Examination Orientation: Person, Place, Situation Memory: Intact Mood: Neutral Affect: Flat Speech: Appropriate Attention: WNL Concentration: WNL Association: WNL Fund of Knowledge: Poor Formal Thought Process: Circumstantial, Perservation Description of patient's judgement and insight: poor insight and judgment Psychotic Thoughts and Behaviors: pt denied any current perceptual disturbances, non elicited Suicidal Ideation: No Current Homicidal Ideation?: No Discharge Summary - Discharge Note Reason for Hospitalization: pt signed voluntary admission form pt with previous diagnosis of psychotic disorder, [place] [facility] [place] for about a week due to disorganized behavior, non compliant with treatment, brought to ER by EMS as she was found by police exhibiting disorganized behavior in public pt on the unit presenting with disorganized thought process stating her back hurts as somebody is doing magic on her, she has paucity of speech with thought blocking , appears internally preoccupied responding to internal stimuli, pt denied command hallucinations, has no insight into illness requestiondg discharge , denied suicidal or homicidal ideations urine toxicology positive for cannabis Consultations:: List each consultation separately and include: 1. Reason for request. 2. Findings. 3. Follow-up Summary of Hospital Course include:: 1. Description of specific treatment plan utilized for patients during their course of treatmen. 2. Summarize the time- course for resolution of acute symptoms and/or regressed behaviors. 3. Describe issues identified and worked on during hospitalization. 4. Describe medication utilized. 5. Describe medical problems identified and treated. 6. Reassessment of suicide risk Summary of Hospital Course: pt on admission, was floridly psychotic, rigid, internally preoccupied , rigid posture, thought blocking pt was started on risperidone, 1mg it was uptitrated to 2mg bid, cogentin 0.5mg bid was added for rigidity pt refused to provide any information for family for collaterals , requested to be discharged and signed 48hour notice, pt was referred for screening for involuntary admission for continuity of care , pt however was [place] [facility] [place] found to meet criteria for involuntary admission pt on discharge denied any current suicidal or homicidal ideation , denied perceptual disturbances , non elicited , mental status on discharge showed pt not danger to self or others, no reported side effects of medications follow up was arranged at [facility] outpatient - Diagnosis (1) Psychosis Current Visit: Yes Status: Acute - Final Diagnosis (DSM 5) Condition upon Discharge: GOOD DSM 5: psychotic disorder schizophrenia cannabis induced pychotic disorder cannabis abuse Disposition: HOME/ ROUTINE Follow-up Treatment Plan: risperidone 2mg daily and 2mg qhs, cogentin 0.5mg bid remeron 15mg qhs Prescriptions/Medication Reconciliation: Benztropine [Cogentin] 0.5 mg PO DAILY 30 Days #30 tab Benztropine [Cogentin] 0.5 mg PO HS 30 Days #30 tab Mirtazapine [Remeron] 15 mg PO HS 30 Days #30 tab Risperidone [Risperdal M-TAB] 2 mg PO DAILY 30 Days #30 odt Risperidone [Risperdal M-TAB] 2 mg PO HS 30 Days #30 odt - Antipsychotic Medications Pt discharged on 2 or more routine antipsychotic medications: No
== END 2018-04-08 13:39 | disposition home or self-care (01) | DRG 430 ==
LOC: H.ER 17:38 → H.ERHOLD 21:10 → H.PSYCH 22:09
PROVIDERS: ADMIT Psychiatry & Neurology Psychiatry; ATTEND Psychiatry & Neurology Psychiatry
PROC: GZ58ZZZ Individual Psychotherapy, Cognitive-Behavioral (ICD-10-PCS; principal; 2018-03-30)
PROC: GZHZZZZ Group Psychotherapy (ICD-10-PCS; 2018-03-30)
PROC: HZ52ZZZ Individual Psychotherapy for Substance Abuse Treatment, Cognitive-Behavioral (ICD-10-PCS; 2018-03-30)
DX: F32.3 Major depressive disorder, single episode, severe with psychotic features (principal); F12.159 Cannabis abuse with psychotic disorder, unspecified; F43.10 Post-traumatic stress disorder, unspecified; F60.9 Personality disorder, unspecified; Z91.19 Patient's noncompliance with other medical treatment and regimen; D64.9 Anemia, unspecified; K29.70 Gastritis, unspecified, without bleeding; Z88.0 Allergy status to penicillin; Z91.040 Latex allergy status; Z87.442 Personal history of urinary calculi

== ENCOUNTER 2018-04-22 18:06 | Emergency (ER) | payer MEDICAID ==
[2018-04-22 18:06] VITALS: BMI 24.7
[2018-04-22 19:38] LABS: SQUAMOUS EPITHIAL 13 /hpf (0-5); URINE BACTERIA RARE (<OCC); URINE BILIRUBIN NEGATIVE (NEGATIVE); URINE BLOOD NEGATIVE (NEGATIVE); URINE CLARITY CLOUDY (Clear); URINE COLOR YELLOW (YELLOW); URINE GLUCOSE (UA) NEG (Normal); URINE LEUKOCYTE ESTERASE LARGE Leu/uL (Negative); URINE PROTEIN 30 mg/dL (NEGATIVE); URINE UROBILINOGEN 0.2-1.0 mg/dL (0.2-1.0)
[2018-04-22 19:54] LABS: BARBITURATES, UR NEGATIVE (NEGATIVE); BENZODIAZEPINES, UR NEGATIVE (NEGATIVE); OPIATES, UR NEGATIVE (NEGATIVE); PHENCYCLIDINE, UR NEGATIVE (NEGATIVE)
--- NOTE | 2018-04-22 20:08 | ED PDOC ---
HPI: Psych/Substance Abuse Time Seen by Provider: 04/22/18 18:11 Chief Complaint (Nursing): Psychiatric Evaluation Chief Complaint (Provider): "I don't feel like myself" History Per: Patient History/Exam Limitations: no limitations Onset/Duration Of Symptoms: Hrs Current Symptoms Are (Timing): Still Present Additional Complaint(s): 27 yo female with schizophrenia presents stating "I don't feel right and I think I need to stay". Pt was seen in [facility] this morning for dental pain. Pt asking for pain medications in ER. Pt pacing back and forth in room. Past Medical History Reviewed: Historical Data, Nursing Documentation, Vital Signs Vital Signs: Last Vital Signs Temp 98.7 F 04/22/18 18:07 Pulse 98 H 04/22/18 18:07 Resp 20 04/22/18 18:07 BP 114/80 04/22/18 18:07 Pulse Ox 99 04/22/18 18:07 - Medical History PMH: Anemia, Gastritis, Kidney Stones, Personality Disorder, Schizophrenia Denies: Diabetes, Hepatitis, HIV, HTN, Chronic Kidney Disease, Seizures, Sexually Transmitted Disease - Surgical History Surgical History: No Surg Hx - Family History Family History: States: Unknown Family Hx - Living Arrangements Living Arrangements: With Family - Social History Current smoker - smoking cessation education provided: Yes - Immunization History Hx Tetanus Toxoid Vaccination: Yes (06/03/2013) Hx Influenza Vaccination: No Hx Pneumococcal Vaccination: No - Home Medications Home Medications: Ambulatory Orders Medication Instructions Recorded Unobtainable 04/22/18 - Allergies Allergies/Adverse Reactions: Allergies Allergy/AdvReac Type Severity Reaction Status Date / Time latex Allergy Verified 04/22/18 02:29 Latex, Natural Rubber Allergy Verified 04/22/18 02:29 Penicillins Allergy RASH Verified 04/22/18 02:29 Review of Systems ROS Statement: Except As Marked, All Systems Reviewed And Found Negative Constitutional: Negative for: Fever, Chills ENT: Positive for: Other (Dental pain ) Psych: Positive for: Other Physical Exam - Reviewed Nursing Documentation Reviewed: Yes Vital Signs Reviewed: Yes - Physical Exam Appears: Positive for: Well, Non-toxic, No Acute Distress Head Exam: Positive for: ATRAUMATIC, NORMAL INSPECTION, NORMOCEPHALIC Skin: Positive for: Normal Color, Warm, DRY Eye Exam: Positive for: Normal appearance ENT: Positive for: Normal ENT Inspection Neck: Positive for: Normal, Painless ROM Cardiovascular/Chest: Positive for: Regular Rate, Rhythm Respiratory: Positive for: CNT, Normal Breath Sounds Back: Positive for: Normal Inspection Extremity: Positive for: Normal ROM Neurologic/Psych: Positive for: Alert, Oriented - Laboratory Results Result Diagrams: 04/22/18 21:40 04/22/18 21:40 - ECG O2 Sat by Pulse Oximetry: 99 Medical Decision Making Medical Decision Making: Pt referred to [facility]. Labs normal. (+) UTI - Cipro given . Disposition - Clinical Impression Clinical Impression: Schizophrenia - Patient ED Disposition Is Patient to be Admitted: Transfer of Care - Disposition Disposition: Transfer of Care Disposition Time: 00:00 Condition: GOOD Forms: [facility] (Yoruba)
[2018-04-22 21:46] LABS: HEMOGLOBIN 10.6 g/dL (12.0-16.0); MEAN CELL VOLUME 84.1 fl (81.0-99.0); MEAN CORPUSCULAR HEMOGLOBIN 27.9 pg (27.0-31.0); MEAN CORPUSCULAR HGB CONC 33.2 g/dL (33.0-37.0); RBC 3.8 Mil/uL (3.80-5.20); RED CELL DISTRIBUTION WIDTH 17.7 % (11.5-14.5); WHITE BLOOD COUNT 10.1 K/uL (4.8-10.8)
[2018-04-22 22:25] LABS: ALB/GLOB RATIO 1.5 (1.0-2.1); ALBUMIN 4.5 g/dL (3.5-5.0); ALT/SGPT 28 U/L (9-52); AST/SGOT 25 U/L (14-36); BLOOD UREA NITROGEN 13 mg/dl (7-17); CALCIUM 9.5 mg/dL (8.4-10.2); GFR AFRICAN-AMERICAN > 60; GFR NON-AFRICAN AMERICAN > 60
--- NOTE | 2018-04-23 09:00 | CP.PCM.CON ---
History of Present Illness - History of Present Illness History of Present Illness: Psychiatry consult note Patient unable to engage in interview due to acute sedation; patient was medicated this AM for agitation and bizarre behavior. HPI: 27 yo female w/ h/o schizophrenia and multiple past psychiatric admission presents w/ increasing bizarre behavior. She denied acute depression/anxiety/AH /VH/SI/HI to ED staff, but seemed psychotic, guarded and internally preoccupied. It is unclear if patient has been complaint with psychiatric treatment and medications. Impression: 27 yo female presents acutely decompensated, needs to be screened to determine if she meets criteria for involuntary commitment. If she does not meet criteria for involuntary commitment, she will be discharged if she is not agreeable to voluntary psychiatric admission. Past Patient History - Infectious Disease Hx of Infectious Diseases: None - Past Medical History & Family History Past Medical History?: Yes - Past Social History Smoking Status: Unknown If Ever Smoked - CARDIAC Hx Cardiac Disorders: No Hx Hypertension: No - PULMONARY Hx Tuberculosis: No - NEUROLOGICAL HX Cerebrovascular Accident: No Hx Seizures: No - HEENT Hx HEENT Problems: Yes (bilateral torn earlobes) - RENAL Hx Chronic Kidney Disease: No Hx Kidney Stones: Yes - ENDOCRINE/METABOLIC Hx Endocrine Disorders: No - HEMATOLOGICAL/ONCOLOGICAL Hx Cancer: No Hx Human Immunodeficiency Virus (HIV): No - INTEGUMENTARY Hx Dermatological Problems: Yes Hx Alexander: Yes (on face from hair removing chemical) - MUSCULOSKELETAL/RHEUMATOLOGICAL Hx Musculoskeletal Disorders: No - GASTROINTESTINAL Hx Gastritis: Yes - GENITOURINARY/GYNECOLOGICAL Hx Sexually Transmitted Disorders: No - PSYCHIATRIC Hx Schizophrenia: Yes - SURGICAL HISTORY Hx Surgeries: No - ANESTHESIA Hx Anesthesia: No Meds Allergies/Adverse Reactions: Allergies Allergy/AdvReac Type Severity Reaction Status Date / Time latex Allergy Verified 04/22/18 02:29 Latex, Natural Rubber Allergy Verified 04/22/18 02:29 Penicillins Allergy RASH Verified 04/22/18 02:29 Results - Vital Signs Recent Vital Signs: Last Vital Signs Temp 97.9 F 04/23/18 05:10 Pulse 69 04/23/18 07:20 Resp 18 04/23/18 07:20 BP 108/67 04/23/18 07:20 Pulse Ox 97 04/23/18 07:20 - Labs Result Diagrams: 04/22/18 21:40 04/22/18 21:40 Labs: Laboratory Results - last 24 hr 04/22/18 04/22/18 04/22/18 19:05 19:05 21:40 WBC RBC Hgb Hct MCV MCH MCHC RDW Plt Count Sodium 139 Potassium 4.0 Chloride 98 Carbon Dioxide 27 Anion Gap 18 BUN 13 Creatinine 0.7 Est GFR ( Amer) > 60 Est GFR (Non-Af Amer) > 60 Random Glucose 106 H Calcium 9.5 Total Bilirubin 0.6 AST 25 ALT 28 Alkaline Phosphatase 52 Total Protein 7.5 Albumin 4.5 Globulin 3.0 Albumin/Globulin Ratio 1.5 Urine Color Yellow Urine Clarity Cloudy Urine pH 5.0 Ur Specific [place] 1.029 Urine Protein 30 Urine Glucose (UA) Neg Urine Ketones Negative Urine Blood Negative Urine Nitrate Negative Urine Bilirubin Negative Urine Urobilinogen 0.2-1.0 Ur Leukocyte Esterase Large Urine RBC (Auto) 3 Urine Microscopic WBC 27 H Ur Squamous Epith Cells 13 H Urine Bacteria Rare Urine Opiates Screen Negative Urine Methadone Screen Negative Ur Barbiturates Screen Negative Ur Phencyclidine Scrn Negative Ur Amphetamines Screen Negative U Benzodiazepines Scrn Negative U Oth Cocaine Metabols Negative U Cannabinoids Screen Positive H Alcohol, Quantitative < 10 04/22/18 21:40 WBC 10.1 RBC 3.80 Hgb 10.6 L Hct 32.0 L MCV 84.1 MCH 27.9 MCHC 33.2 RDW 17.7 H Plt Count 307 Sodium Potassium Chloride Carbon Dioxide Anion Gap BUN Creatinine Est GFR ( Amer) Est GFR (Non-Af Amer) Random Glucose Calcium Total Bilirubin AST ALT Alkaline Phosphatase Total Protein Albumin Globulin Albumin/Globulin Ratio Urine Color Urine Clarity Urine pH Ur Specific [place] Urine Protein Urine Glucose (UA) Urine Ketones Urine Blood Urine Nitrate Urine Bilirubin Urine Urobilinogen Ur Leukocyte Esterase Urine RBC (Auto) Urine Microscopic WBC Ur Squamous Epith Cells Urine Bacteria Urine Opiates Screen Urine Methadone Screen Ur Barbiturates Screen Ur Phencyclidine Scrn Ur Amphetamines Screen U Benzodiazepines Scrn U Oth Cocaine Metabols U Cannabinoids Screen Alcohol, Quantitative
--- NOTE | 2018-04-23 12:12 | ED PDOC ---
- Laboratory Results Result Diagrams: 04/22/18 21:40 04/22/18 21:40 - ECG O2 Sat by Pulse Oximetry: 98 Disposition - Clinical Impression Clinical Impression: Schizophrenia - POA Present On Arrival: None - Disposition Disposition: Transfer of Care Disposition Time: 14:47 Condition: FAIR Forms: [employer] (Macedonian) Patient Signed Over To: Evi Shi
--- NOTE | 2018-04-23 15:06 | ED PDOC ---
- Laboratory Results Result Diagrams: 04/22/18 21:40 04/22/18 21:40 - ECG Interpretation Of ECG: NSR @ 70, no ST-T changes. O2 Sat by Pulse Oximetry: 98 (RA) Pulse Ox Interpretation: Normal - Radiology X-Ray: Interpreted by Me X-Ray Interpretation: No Acute Disease Medical Decision Making Medical Decision Making: Patient signed out to me by Dr. Perla @ 15:00, pending [facility] screening. Scribe Attestation: Documented by Everardo Sousa, acting as a scribe for Evi Shi MD Provider Scribe Attestation: All medical record entries made by the Scribe were at my direction and personally dictated by me. I have reviewed the chart and agree that the record accurately reflects my personal performance of the history, physical exam, medical decision making, and the department course for this patient. I have also personally directed, reviewed, and agree with the discharge instructions and disposition. Disposition - Clinical Impression Clinical Impression: Schizophrenia - POA Present On Arrival: None - Disposition Disposition: Other Institution ([facility]) Disposition Time: 21:15 Condition: STABLE Forms: [employer] ([place]inean)
[2018-04-23 21:57] VITALS: RESP 18
[2018-04-24 00:39] VITALS: BP 100/61; PULSE 74; TEMP 98.3
--- NOTE | 2018-04-24 08:28 | RAD ---
HISTORY: Admission COMPARISON: 10/27/2014. FINDINGS: LUNGS: The lungs are well inflated and clear. PLEURA: No significant pleural effusion identified, no pneumothorax apparent. CARDIOVASCULAR: Normal. OSSEOUS STRUCTURES: No significant abnormalities. VISUALIZED UPPER ABDOMEN: Normal. OTHER FINDINGS: None. IMPRESSION: No active pulmonary disease.
--- NOTE | 2018-04-24 10:55 | CARD ---
APPROVED REPORT EKG Measurement Heart [id number] <Conclusion> Normal sinus rhythm Normal ECG
[2018-04-26 04:16] VITALS: O2SAT 99
== END 2018-04-24 00:51 | disposition short-term general hospital (02) ==
LOC: H.ER 18:06
DX: F20.9 Schizophrenia, unspecified (principal); F17.200 Nicotine dependence, unspecified, uncomplicated; K29.70 Gastritis, unspecified, without bleeding; Z88.0 Allergy status to penicillin
CPT/HCPCS: 80053; 80320; 80324; 80345; 80346; 80349; 80353; 80358; 80361; 81003; 81025; 83992; 85027; 93005; 99285; J1630; J2060

== ENCOUNTER 2018-05-02 10:51 | Emergency (ER) | payer MEDICAID ==
[2018-05-02 10:51] VITALS: BMI 24.7
--- NOTE | 2018-05-02 11:37 | ED PDOC ---
HPI: Psych/Substance Abuse Time Seen by Provider: 05/02/18 11:36 Chief Complaint (Nursing): Psychiatric Evaluation Chief Complaint (Provider): Crisis eval History Per: Patient History/Exam Limitations: no limitations Onset/Duration Of Symptoms: Days (two), Persistent Current Symptoms Are (Timing): Still Present Suicide/Self Injury Attempted (Context): None Associated Symptoms: Paranoia Past Medical History Reviewed: Historical Data, Nursing Documentation, Vital Signs Vital Signs: Last Vital Signs Temp 98.7 F 05/02/18 11:00 Pulse 96 H 05/02/18 11:00 Resp 18 05/02/18 11:00 BP 108/60 05/02/18 11:00 Pulse Ox 99 05/02/18 11:00 - Medical History PMH: Anemia, Gastritis, Kidney Stones, Personality Disorder, Schizophrenia Denies: Diabetes, Hepatitis, HIV, HTN, Chronic Kidney Disease, Seizures, Sexually Transmitted Disease - Family History Family History: States: Unknown Family Hx - Immunization History Hx Tetanus Toxoid Vaccination: Yes (06/03/2013) Hx Influenza Vaccination: No Hx Pneumococcal Vaccination: No - Home Medications Home Medications: Ambulatory Orders Medication Instructions Recorded Nitrofurantoin Macrocrystals 1 cap PO BID #14 cap 05/01/18 [Macrobid] - Allergies Allergies/Adverse Reactions: Allergies Allergy/AdvReac Type Severity Reaction Status Date / Time latex Allergy Verified 05/01/18 00:08 Latex, Natural Rubber Allergy Verified 05/01/18 00:08 Penicillins Allergy RASH Verified 05/01/18 00:08 Review of Systems ROS Statement: Except As Marked, All Systems Reviewed And Found Negative Psych: Positive for: Psychosis. Negative for: Suicidal ideation Physical Exam - Reviewed Nursing Documentation Reviewed: Yes Vital Signs Reviewed: Yes - Physical Exam Appears: Positive for: Well, Non-toxic, No Acute Distress. Negative for: Uncomfortable Head Exam: Positive for: ATRAUMATIC, NORMAL INSPECTION, NORMOCEPHALIC Skin: Positive for: Normal Color, Warm, Dry Cardiovascular/Chest: Positive for: Regular Rate, Rhythm Respiratory: Positive for: Normal Breath Sounds Pulses-Carotid (L): 2+ Pulses-Carotid (R): 2+ Pulses-Radial (L): 2+ Pulses-Radial (R): 2+ - ECG O2 Sat by Pulse Oximetry: 99 Medical Decision Making Medical Decision Making: medically cleared for crisis evaluation Disposition - Clinical Impression Clinical Impression: Schizophrenia - Patient ED Disposition Is Patient to be Admitted: No Doctor Will See Patient In The: Office Counseled Patient/Family Regarding: Diagnosis, Need For Followup - Disposition Disposition: Routine/Home Disposition Time: 16:30 Condition: STABLE Additional Instructions: follow up provided separately Instructions: Schizophrenia (DC) Forms: [employer] (Yemeni)
[2018-05-02 16:46] VITALS: BP 120/58; PULSE 68; RESP 16; TEMP 98
[2018-05-02 17:08] VITALS: O2SAT 99
== END 2018-05-02 16:26 | disposition home or self-care (01) ==
LOC: H.ER 10:51
DX: F20.9 Schizophrenia, unspecified (principal); Z88.0 Allergy status to penicillin

== ENCOUNTER 2018-05-10 14:03 | Emergency (ER) | payer MEDICAID ==
[2018-05-10 14:03] VITALS: BMI 24.7
[2018-05-10 14:08] VITALS: BP 104/60; PULSE 98; RESP 16; TEMP 98.1; O2SAT 100
--- NOTE | 2018-05-10 14:28 | ED PDOC ---
HPI: Psych/Substance Abuse Time Seen by Provider: 05/10/18 14:24 Chief Complaint (Nursing): Psychiatric Evaluation Chief Complaint (Provider): Psychiatric Evaluation History Per: Patient History/Exam Limitations: no limitations Onset/Duration Of Symptoms: Hrs Current Symptoms Are (Timing): Better Suicide/Self Injury Attempted (Context): None Modifying Factor(s): None Additional Complaint(s): 27 y/o female presents to the ED psychiatric evaluation. Patient reports being seen at [facility] after hearing voices this morning. Upon being discharged home she started to hear voices again prompting her to call EMS. Upon EMS arriving she told them she felt better but was told she had to come in. Patient was given a prescription at [facility] for Risperdal. 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 Patient is requesting to go home and has no medical complaints. Denies any suicidal or homicidal ideation. PMD: none provided Past Medical History Reviewed: Historical Data, Nursing Documentation, Vital Signs Vital Signs: Last Vital Signs Temp 98.1 F 05/10/18 14:05 Pulse 98 H 05/10/18 14:05 Resp 16 05/10/18 14:05 BP 104/60 05/10/18 14:05 Pulse Ox 100 05/10/18 14:05 - Medical History PMH: Anemia, Gastritis, Kidney Stones, Personality Disorder, Schizophrenia Denies: Diabetes, Hepatitis, HIV, HTN, Chronic Kidney Disease, Seizures, Sexually Transmitted Disease - Surgical History Surgical History: No Surg Hx - Family History Family History: States: Unknown Family Hx - Immunization History Hx Tetanus Toxoid Vaccination: Yes (06/03/2013) Hx Influenza Vaccination: No Hx Pneumococcal Vaccination: No - Home Medications Home Medications: Ambulatory Orders Medication Instructions Recorded Benztropine [Cogentin] 1 mg PO BID #60 tab 05/10/18 Haloperidol [Haldol] 5 mg PO BID #60 tab 05/10/18 traZODone [Desyrel] 50 mg PO HS PRN #30 tab 05/10/18 - Allergies Allergies/Adverse Reactions: Allergies Allergy/AdvReac Type Severity Reaction Status Date / Time latex Allergy Verified 05/02/18 19:06 Latex, Natural Rubber Allergy Verified 05/02/18 19:06 Penicillins Allergy RASH Verified 05/02/18 19:06 Review of Systems ROS Statement: Except As Marked, All Systems Reviewed And Found Negative Psych: Positive for: Psychosis, Other (here for psychiatric evaluation for hearing voices, patient denies). Negative for: Suicidal ideation (or homicidal ideation) Physical Exam - Reviewed Nursing Documentation Reviewed: Yes Vital Signs Reviewed: Yes - Physical Exam Appears: Positive for: Well, Non-toxic, No Acute Distress Head Exam: Positive for: ATRAUMATIC, NORMOCEPHALIC Skin: Positive for: Normal Color, Warm, DRY Neck: Positive for: Normal, Painless ROM, Supple. Negative for: Decreased ROM Cardiovascular/Chest: Positive for: Regular Rate, Rhythm. Negative for: Murmur Respiratory: Positive for: Normal Breath Sounds. Negative for: Respiratory Distress Neurologic/Psych: Positive for: Alert, Oriented (x3) - ECG O2 Sat by Pulse Oximetry: 100 (RA) Pulse Ox Interpretation: Normal Medical Decision Making Medical Decision Making: Time: 14:05 Impression: S/p auditory hallucinations Plan: * Crisis Consult & Discharge Scribe Attestation: Documented by Abdelrahman Ram acting as a scribe Tiffany Rosa PA-C. MD Scribe Attestation: All medical record entries made by the Scribe were at my direction and personally dictated by me. I have reviewed the chart and agree that the record accurately reflects my personal performance of the history, physical exam, medical decision making, and the department course for this patient. I have also personally directed, reviewed, and agree with the discharge instructions and disposition. Disposition - Clinical Impression Clinical Impression: Schizophrenia Discussed With : Anshul Hong (discharged) Doctor Will See Patient In The: Office Counseled Patient/Family Regarding: Diagnosis, Need For Followup - Disposition Disposition: Routine/Home Disposition Time: 15:10 Condition: STABLE Additional Instructions: referrals as provided by crisis Forms: [employer] (Filipino)
== END 2018-05-10 15:23 | disposition home or self-care (01) ==
LOC: H.ER 14:03
DX: F20.9 Schizophrenia, unspecified (principal); Z87.442 Personal history of urinary calculi; Z88.0 Allergy status to penicillin

== ENCOUNTER 2018-05-10 17:03 | Inpatient (IN) | payer MEDICAID ==
[2018-05-10 17:03] VITALS: BMI 24.7
[2018-05-10 18:01] LABS: BASO # 0.1 K/uL (0.0-0.2); BASO % 0.7 % (0.0-2.0); EOS # 0.1 K/uL (0.0-0.7); EOS % 0.5 % (0.0-4.0); HEMOGLOBIN 11.6 g/dL (12.0-16.0); LYMPH # 1.8 K/uL (1.0-4.3); LYMPH % 16.9 % (20.0-40.0); MEAN CELL VOLUME 84.2 fl (81.0-99.0); MEAN CORPUSCULAR HGB CONC 33.2 g/dL (33.0-37.0); MONO # 0.5 K/uL (0.0-0.8); MONO % 4.7 % (0.0-10.0); NEUT # 8.4 K/uL (1.8-7.0); NEUT % 77.2 % (50.0-75.0); NRBC % 0.1 % (0.0-0.0); RBC 4.15 Mil/uL (3.80-5.20); RED CELL DISTRIBUTION WIDTH 17.4 % (11.5-14.5); WHITE BLOOD COUNT 10.9 K/uL (4.8-10.8)
[2018-05-10 18:09] LABS: ALB/GLOB RATIO 1.4 (1.0-2.1); ALBUMIN 4.7 g/dL (3.5-5.0); ALT/SGPT 32 U/L (9-52); AST/SGOT 23 U/L (14-36); BLOOD UREA NITROGEN 13 mg/dl (7-17); CALCIUM 9.8 mg/dL (8.4-10.2); GFR AFRICAN-AMERICAN > 60; GFR NON-AFRICAN AMERICAN > 60
--- NOTE | 2018-05-10 18:39 | ED PDOC ---
HPI: Psych/Substance Abuse Time Seen by Provider: 05/10/18 17:09 Chief Complaint (Nursing): Psychiatric Evaluation Chief Complaint (Provider): crisis evaluation ED Caveat: Psychotic History Per: Patient, Other (prior charts) Suicide/Self Injury Attempted (Context): None Modifying Factor(s): Alcohol Associated Symptoms: Depression, Paranoia, Suicidal Thoughts Involuntary Hold By: Emergency Physician Additional History Per: Prior Records Additional Complaint(s): 27yo female history schizophrenia presents c/o hearing voices, suicidal thoughts , recently discharged from psychiatric service at [facility]. Denies fever, cough, SOB, chest pain or syncope. Past Medical History Vital Signs: Last Vital Signs Temp 98.2 F 05/10/18 17:06 Pulse 109 H 05/10/18 17:06 Resp 16 05/10/18 17:06 BP 111/67 05/10/18 17:06 Pulse Ox 100 05/10/18 17:06 - Medical History PMH: Anemia, Gastritis, Kidney Stones, Personality Disorder, Schizophrenia Denies: Diabetes, Hepatitis, HIV, HTN, Chronic Kidney Disease, Seizures, Sexually Transmitted Disease - Family History Family History: States: Unknown Family Hx - Immunization History Hx Tetanus Toxoid Vaccination: Yes (06/03/2013) Hx Influenza Vaccination: No Hx Pneumococcal Vaccination: No - Home Medications Home Medications: Ambulatory Orders Medication Instructions Recorded Benztropine [Cogentin] 1 mg PO BID #60 tab 05/10/18 Haloperidol [Haldol] 5 mg PO BID #60 tab 05/10/18 traZODone [Desyrel] 50 mg PO HS PRN #30 tab 05/10/18 - Allergies Allergies/Adverse Reactions: Allergies Allergy/AdvReac Type Severity Reaction Status Date / Time latex Allergy Verified 05/02/18 19:06 Latex, Natural Rubber Allergy Verified 05/02/18 19:06 Penicillins Allergy RASH Verified 05/02/18 19:06 - Laboratory Results Result Diagrams: 05/10/18 17:53 05/10/18 17:53 - ECG O2 Sat by Pulse Oximetry: 100 Medical Decision Making Medical Decision Making: EKG and CXR both obtained within last 10days EKG NSR without ectopy or ST changes CXR x2 no acute infiltrate basic labs today reviewed, WBC improved from prior per crisis admit 3N Dr Blas Medically stable for psychiatric admission at this time Disposition - Clinical Impression Clinical Impression: Schizophrenia - Patient ED Disposition Is Patient to be Admitted: Yes - Disposition Disposition Time: 18:50 Condition: FAIR - Pt Status Changed To: Hospital Disposition Of: Inpatient - Admit Certification Admit to Inpatient:: After my assessment, the patient will require hospitalization for at least two midnights. This is because of the severity of symptoms shown, intensity of services needed, and/or the medical risk in this patient being treated as an outpatient. - POA Present On Arrival: None
[2018-05-10 19:12] LABS: BARBITURATES, UR NEGATIVE (NEGATIVE); BENZODIAZEPINES, UR NEGATIVE (NEGATIVE); OPIATES, UR NEGATIVE (NEGATIVE); PHENCYCLIDINE, UR NEGATIVE (NEGATIVE)
[2018-05-10] MEDS ORDERED: DiphenhydrAMINE 50 mg/ml Inj IM PRN (20:38)
[2018-05-10] MEDS ORDERED: Alum-Mag Hydrox-Simethicone Susp (30 mL) PO PRN (20:38)
[2018-05-10] MEDS ORDERED: Magnesium Hydroxide Susp 30 ml UD PO PRN (20:38)
--- NOTE | 2018-05-10 20:49 | PCM.BM ---
<CelsokalebGlenn - Last Filed: 05/10/18 20:47> Treatment Plan Problems - Problems identified on initial assessmt auditory Hallucinations Date Initiated: 05/10/18 Time Initiated: 20:48 Assessment reference: NA Status: Active Treatment assets and liabiliti Patient Assests: adapts well, cooperative, ADL independent, physically healthy, negotiates basic needs, good past tx response, cognitively intact Patient Liabilities: financial problems, poor support system, other (homeless) - Milieu Protocol Maintain good personal hygiene: daily Remind patient to perform daily oral care , every other day Encourage regular showers Conduct patient checks and document Observation sheet: Q15 minutes Maintain personal safety: every shift Educate patient to report safety concerns to staff, every shift Monitor environment for contraband/sharps Medication safety: Monitor for expected outcome, potential side effects: every shift, Assess barriers to learning: every shift, Assess readiness for medication education: every shift <Timothy Duckworth J - Last Filed: 05/13/18 07:12> Family Contact Family involvement: Famliy/SO not involved Family contact: Patient declines to allow family contact at present Family contact name: Pt denied. - Goals for Treatment Patient goals for treatment: Pt reported she is fine and wants to return to [facility] nursing home. Discharge/Continuing Care - Education Needs Education Needs: Patient Medication, Patient Diagnosis/Disease Process, Patient Coping Skills, Patient Placement options, Patient Community resources, Patient Aftercare Safety Plan - Discharge Discharge Criteria: Tolerates medication w/o severe side effects, Free of paranoid thoughts, Free of agitation, Normal sleep pattern, Ability to care for self, Reduction of target symptoms Discharge to:: Residential - Treatment Team Participation Patient/Family/SO Statement: 05/12/18 11:13 Pt was met with in team and she reported that she would like to leave the unit, refused to rescind her 48 hour notice. It was explained that [facility] initially refused to commit her, so Dr. Hong plans to re-screen pt. Pt offered no complaints. Discussed with Family/SO: No Was Patient/Family/SO present at Treatment Team Meeting: Yes <Anshul Hong - Last Filed: 05/19/18 13:54> - Diagnosis (1) Psychosis Status: Acute Interventions: pharmacotherapy 05/13/18 14:52
[2018-05-11 03:33] VITALS: O2SAT 100
[2018-05-11 08:46] LABS: HDL CHOLESTEROL 110 MG/DL (30-70)
[2018-05-11 08:59] LABS: T4 7.14 ug/dl (5.5-11.0)
[2018-05-11 09:00] LABS: LDL CHOLESTEROL < 30 mg/dL (0-129)
[2018-05-11] MEDS ORDERED: Risperidone M TAB 2 MG PO STA (11:20)
--- NOTE | 2018-05-11 11:41 | PCM.PSYCH ---
Initial Psychiatric Evaluation - Initial Psychiatric Evaluation Type of Admission: Voluntary Chief Complaint (in patient's own words): I want to leave now Patient's Reaction to Hospitalization: pt requested help History of Present Illness and Precipitating Events: pt is a 27ys old female previous diagnosis of schizophrenia and cannabis use disorder,, recently discharged from [facility] {2 days ago }, pt presented early AM to ER requesting help for experiencing auditory hallucinations, then after the interview ended she requested to be discharged indicating clearing off of the auditory hallucinations , pt was discharged, however she was brought back by police as she was observed on the street, harassing by passers, intrusively talking to them and exhibiting bizarre and disorganized behavior,In the ER pt reported experiencing auditory hallucinations controlling her body,pt requested to be admitted currently on the unit pt is seen pacing, anxious irritable angry, appears responding to internal stimuli , uncooperative refusing to talk to undersigned requesting to be discharged and signed 48 hours notice to leave pt floridly psychotic , concrete and disorganized thought process, internally preoccupied , no insight into illness denied suicidal or homicidal ideation, denied command hallucinations Current Medications: Active Medications Generic Name Dose Route Start Last Admin Trade Name Freq PRN Reason Stop Dose Admin Acetaminophen 650 mg 05/10/18 20:38 Tylenol 325mg Tab PO Q4 PRN pain level 4-7 Al Hydrox/Mg Hydrox/Simethicone 30 ml 05/10/18 20:38 Maalox Plus 30 Ml PO Q4 PRN Dyspepsia Diphenhydramine HCl 50 mg 05/10/18 20:38 Benadryl IM Q6 PRN Extrapyramidal S/S Unable PO Diphenhydramine HCl 50 mg 05/10/18 20:38 05/11/18 03:23 Benadryl PO 50 mg Q6 PRN Administration Extrapyramidal Symptoms Haloperidol 5 mg 05/10/18 20:38 05/11/18 03:23 Haldol PO 5 mg Q4 PRN Administration Agitation Haloperidol Lactate 5 mg 05/10/18 20:38 Haldol IM Q4 PRN Agitation, Unable to Take PO Lorazepam 2 mg 05/10/18 20:38 Ativan IM Q4 PRN Anxiety/Agitation,Unable PO Lorazepam 2 mg 05/10/18 20:38 Ativan PO Q4 PRN Anxiety/Agitation Magnesium Hydroxide 30 ml 05/10/18 20:38 Milk Of Magnesia PO HS PRN Constipation Risperidone 1 mg 05/11/18 17:00 Risperdal M-Tab PO BID [place] Risperidone 2 mg 05/11/18 11:20 Risperdal M-Tab PO 05/11/18 11:21 STAT STA Trazodone HCl 50 mg 05/10/18 20:43 Desyrel PO HS PRN Insomnia Past Psychiatric History - Past Psychiatric History Explanation of prior treatment: pt has multiple hospitalizations, non compliant with treatment History of ETOH/Drug Use: hx of cannabis use Pertinent Medical Hx (Current Medical&Sleep Prob, Allergies): Allergies Allergy/AdvReac Type Severity Reaction Status Date / Time latex Allergy Verified 05/02/18 19:06 Latex, Natural Rubber Allergy Verified 05/02/18 19:06 Penicillins Allergy RASH Verified 05/02/18 19:06 Benztropine [Cogentin] 1 mg PO BID #60 tab 05/10/18 Haloperidol [Haldol] 5 mg PO BID #60 tab 05/10/18 traZODone [Desyrel] 50 mg PO HS PRN #30 tab 05/10/18 Mental Status Examination - Personal Presentation Personal Presentation: Looks stated age - Affect Affect: Constricted, Flat - Motor Activity Motor Activity: Psychomotor Agitation - Reliability in Providing Information Reliability in Providing Information: Poor, due to alteration in thoughts, Poor , due to altered mood - Speech Speech: Disorganized, Irrelevant, Tangential - Mood Mood: Anxious - Formal Thought Process Formal Thought Process: Hallucinations, Delusions, Paranoia Additional comments: floridly psychotic , disorganized, reported non command auditory hallucinations , internally pre occupied - Hallucinations/Delusions Hallucinations: Auditory - Obsessions/Compulsions Obsessions: No Compulsions: No - Cognitive Functions Orientation: Person, Place Sensorium: Alert Attention/Concentration: Easily distracted Abstract Thinking: [place] Judgement: Imparied, as evidence by: Poor judgement, Imparied, as evidence by: Lack of insight into illness - Risk Risk: Elopement, Diminished functioning - Limitations Additional comments: poor compliance DSM 5 DX - DSM 5 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
[2018-05-11] MEDS: Risperidone M tab 1 MG PO SCH (17:08)
[2018-05-12] MEDS: Risperidone M tab 1 MG PO SCH (08:53)
--- NOTE | 2018-05-12 12:11 | PCM.PYCHPN ---
Psychiatric Progress Note - Psychiatric Progress Note Patient seen today, length of contact: pt evaluated discussed with team chart reviewed Patient Chief Complaint: I want to leave Problems Identified/Issues Discussed: pt evaluated with treatment team, continues to be disheveled unkempt not attending to her personal hygiene , concrete thought process, internally preoccupied, responding to internal stimuli ,disorganized speech with loose association refusing to continue with treatment requesting to be discharged, pt floridly psychotic, with limited insight into illness Medical Problems: pt has multiple hospitalizations, non compliant with treatment DSM 5 Symptoms Update: schizophrenia disorganized type cannabis use disorder Medication Change: Yes (increase risperidone) Medical Record Reviewed: Yes Mental Status Examination - Cognitive Function Orientation: Person, Place Memory: Intact Attention: Poor Concentration: Poor Association: Loose Fund of Knowledge: Poor Decription of patient's judgement and insights: poor insight and judgment - Mood Mood: Anxious - Affect Affect: Constricted, Flat - Speech Additional comments: underproductive, disorganized - Formal Thought Process Formal Thought Process: Hallucinations, Delusions, Paranoia Psychotic Thoughts and Behaviors: pt internally preoccupied, responding to internal stimuli - Suicidal Ideation Suicidal Ideation: No - Homicidal Ideation Homicidal Ideation: No Goal/Treatment Plan - Goal/Treatment Plan Need for Continued Stay: Remain at risks for inpatient hospitalization, Severe depression anxiety, Discharge may exacerbated symptoms, Failed transitioning Progress Toward Problem(s) and Goals/Treatment Plan: increase risperidone 2mg bid and uptitrate gradually pt requesting to be discharged , signed 48 hour notice internally preoccupied at current mental status pt is floridly psychotic without insight into illness, will be referred again for screening for involuntary admission , as pt is danger to self and others with psychotic delusional thought process
[2018-05-12] MEDS: Risperidone M TAB 2 MG PO SCH (17:12)
[2018-05-13] MEDS: Risperidone M TAB 2 MG PO SCH (09:24)
--- NOTE | 2018-05-13 14:56 | PCM.PYCHPN ---
Psychiatric Progress Note - Psychiatric Progress Note Patient seen today, length of contact: pt evaluated discussed with team chart reviewed Patient Chief Complaint: I want to leave Problems Identified/Issues Discussed: pt evaluated continues to be floridly psychotic, internally preoccupied, observed talking to self with limited insight into illness , refusing to continue treatment requesting to be discharged , denied command hallucinations, denied any current suicidal or homicidal ideation Medical Problems: pt has multiple hospitalizations, non compliant with treatment DSM 5 Symptoms Update: schizophrenia disorganized type Medication Change: Yes (increase risperidone) Medical Record Reviewed: Yes Mental Status Examination - Cognitive Function Orientation: Person, Place Memory: Intact Attention: Poor Concentration: Poor Association: Loose Fund of Knowledge: Poor Decription of patient's judgement and insights: poor insight and judgment - Mood Mood: Anxious - Affect Affect: Constricted, Flat - Formal Thought Process Formal Thought Process: Hallucinations, Delusions, Paranoia Psychotic Thoughts and Behaviors: pt internally preoccupied, responding to internal stimuli - Suicidal Ideation Suicidal Ideation: No - Homicidal Ideation Homicidal Ideation: No Goal/Treatment Plan - Goal/Treatment Plan Need for Continued Stay: Remain at risks for inpatient hospitalization, Severe depression anxiety, Discharge may exacerbated symptoms, Failed transitioning Progress Toward Problem(s) and Goals/Treatment Plan: increase risperidone 3mg bid and uptitrate gradually pt requesting to be discharged , signed 48 hour notice internally preoccupied at current mental status pt is floridly psychotic without insight into illness, referred for screening for involuntary admission , and accepted, pt awaiting bed in [facility] [place]
[2018-05-13] MEDS: Risperidone M tab 1 MG PO SCH (18:28)
[2018-05-14] MEDS: Risperidone M tab 1 MG PO SCH ×2 (09:20→16:41)
--- NOTE | 2018-05-14 12:14 | PCM.PYCHPN ---
Psychiatric Progress Note - Psychiatric Progress Note Patient seen today, length of contact: Patient evaluated, case discussed w/ team , chart reviewed Patient Chief Complaint: "I'm fine." Problems Identified/Issues Discussed: Patient continues to be psychotic, internally preoccupied, observed talking to herself, minimizing symptoms, w/ poor insight and judgment. She was screened by [facility] [place], accepted for involuntary admission, pending bed and transfer. Medication Change: No Medical Record Reviewed: Yes Consults ordered or reviewed: Medicine consult Mental Status Examination - Cognitive Function Orientation: Person, Place, Situation Attention: Poor Concentration: Poor Association: Loose Fund of Knowledge: Poor Decription of patient's judgement and insights: Poor I/J - Mood Mood: Anxious - Affect Affect: Flat - Formal Thought Process Formal Thought Process: Hallucinations, Delusions, Paranoia Psychotic Thoughts and Behaviors: +Internal preoccupations, likely +AH; Delusions - Suicidal Ideation Suicidal Ideation: No - Homicidal Ideation Homicidal Ideation: No Goal/Treatment Plan - Goal/Treatment Plan Need for Continued Stay: Remain at risks for inpatient hospitalization, Severe depression anxiety, Discharge may exacerbated symptoms, Failed transitioning Progress Toward Problem(s) and Goals/Treatment Plan: Schizophrenia -Continue Risperdal 3 mg PO BID -Transfer to [facility] [place] bed is available -Medicine consult -Individual and group therapy -Psychoeducation Estimated Date of D/C: 05/16/18
--- NOTE | 2018-05-15 07:13 | PCM.PYCHPN ---
Psychiatric Progress Note - Psychiatric Progress Note Patient seen today, length of contact: Patient evaluated, case discussed w/ team , chart reviewed Patient Chief Complaint: "I'm fine." Problems Identified/Issues Discussed: No new events overnight. Patient observed pacing around her room. Patient continues to be psychotic, internally preoccupied, minimizing symptoms, w/ poor insight and judgment. She was screened by [facility] [place], accepted for involuntary admission, pending bed and transfer. Patient is not willing to increase Risperdal dose at this time. Medication Change: No Medical Record Reviewed: Yes Consults ordered or reviewed: Medicine consult Mental Status Examination - Cognitive Function Orientation: Person, Place, Situation Attention: Poor Concentration: Poor Association: Loose Fund of Knowledge: Poor Decription of patient's judgement and insights: Poor I/J - Mood Mood: Anxious - Affect Affect: Flat - Formal Thought Process Formal Thought Process: Hallucinations, Delusions, Paranoia Psychotic Thoughts and Behaviors: +Internal preoccupations, likely +AH; Delusions - Suicidal Ideation Suicidal Ideation: No - Homicidal Ideation Homicidal Ideation: No Goal/Treatment Plan - Goal/Treatment Plan Need for Continued Stay: Remain at risks for inpatient hospitalization, Severe depression anxiety, Discharge may exacerbated symptoms, Failed transitioning Progress Toward Problem(s) and Goals/Treatment Plan: Schizophrenia -Continue Risperdal 3 mg PO BID -Transfer to [facility] [place] when bed is available -Medicine consult -Individual and group therapy -Psychoeducation Estimated Date of D/C: 05/17/18
[2018-05-15] MEDS: Risperidone M tab 1 MG PO SCH ×2 (09:09→17:36)
--- NOTE | 2018-05-16 08:07 | PCM.PYCHPN ---
Psychiatric Progress Note - Psychiatric Progress Note Patient seen today, length of contact: Patient evaluated, case discussed w/ team , chart reviewed Patient Chief Complaint: "I'm fine." Problems Identified/Issues Discussed: No new events overnight. Patient continues to be psychotic, internally preoccupied, minimizing symptoms, w/ poor insight and judgment. She was screened by [facility] [place], accepted for involuntary admission, pending bed and transfer. Patient is not willing to increase Risperdal dose at this time. Medication Change: No Medical Record Reviewed: Yes Consults ordered or reviewed: Medicine consult Mental Status Examination - Cognitive Function Orientation: Person, Place, Situation Attention: Poor Concentration: Poor Association: Loose Fund of Knowledge: Poor Decription of patient's judgement and insights: Poor I/J - Mood Mood: Anxious - Affect Affect: Flat - Formal Thought Process Formal Thought Process: Hallucinations, Delusions, Paranoia Psychotic Thoughts and Behaviors: +Internal preoccupations, likely +AH; Delusions - Suicidal Ideation Suicidal Ideation: No - Homicidal Ideation Homicidal Ideation: No Goal/Treatment Plan - Goal/Treatment Plan Need for Continued Stay: Remain at risks for inpatient hospitalization, Discharge may exacerbated symptoms Progress Toward Problem(s) and Goals/Treatment Plan: Schizophrenia -Continue Risperdal 3 mg PO BID -Transfer to [facility] [place] when bed is available -Medicine consult -Individual and group therapy -Psychoeducation Estimated Date of D/C: 05/17/18
[2018-05-16] MEDS: Risperidone M tab 1 MG PO SCH ×2 (09:14→16:51)
[2018-05-17] MEDS: Risperidone M tab 1 MG PO SCH (09:26)
--- NOTE | 2018-05-17 16:34 | PCM.PYCHPN ---
Psychiatric Progress Note - Psychiatric Progress Note Patient seen today, length of contact: Patient evaluated, case discussed w/ team , chart reviewed Patient Chief Complaint: when do I leave Problems Identified/Issues Discussed: pt evaluated continues to be guarded, evasive paranoid, floridly psychotic, internally preoccupied, observed talking to self with limited insight into illness , pt has no insight into illness, continues to request to be discharged refusing after care , no reported side effects of medications , denied command hallucinations, denied any current suicidal or homicidal ideation Medical Problems: pt has multiple hospitalizations, non compliant with treatment DSM 5 Symptoms Update: schizophrenia disorganized type Medication Change: Yes (d/c risperdal start haldol) Medical Record Reviewed: Yes Mental Status Examination - Cognitive Function Orientation: Person, Place, Situation Attention: Poor Concentration: Poor Association: Loose Fund of Knowledge: Poor - Mood Mood: Anxious - Affect Affect: Flat - Formal Thought Process Formal Thought Process: Hallucinations, Delusions, Paranoia Psychotic Thoughts and Behaviors: pt internally preoccupied, denied command hallucinations - Suicidal Ideation Suicidal Ideation: No - Homicidal Ideation Homicidal Ideation: No Goal/Treatment Plan - Goal/Treatment Plan Need for Continued Stay: Remain at risks for inpatient hospitalization, Discharge may exacerbated symptoms Progress Toward Problem(s) and Goals/Treatment Plan: idiscontinue risperidone 3mg bid and ustart haldol 3mg bid and cogentin 0.5 mg bid at current mental status pt is floridly psychotic without insight into illness, referred for screening for involuntary admission , and accepted, [place] [facility] [place]imated Date of D/C: 05/17/18
--- NOTE | 2018-05-18 18:04 | PCM.PYCHPN ---
Psychiatric Progress Note - Psychiatric Progress Note Patient seen today, length of contact: Patient evaluated, case discussed w/ team , chart reviewed Patient Chief Complaint: I am alright Problems Identified/Issues Discussed: pt evaluated continues to be guarded, with thought blocking , concrete thought process, evasive paranoid, floridly psychotic, internally preoccupied, observed talking to self with limited insight into illness , , denied command hallucinations, denied any current suicidal or homicidal ideation Medical Problems: pt has multiple hospitalizations, non compliant with treatment DSM 5 Symptoms Update: schizophrenia Medication Change: Yes (increase haldol) Medical Record Reviewed: Yes Mental Status Examination - Cognitive Function Orientation: Person, Place, Situation Attention: Poor Concentration: Poor Association: Loose Fund of Knowledge: Poor - Mood Mood: Anxious - Affect Affect: Flat - Formal Thought Process Formal Thought Process: Hallucinations, Delusions, Paranoia Psychotic Thoughts and Behaviors: pt internally preoccupied, denied command hallucinations - Suicidal Ideation Suicidal Ideation: No - Homicidal Ideation Homicidal Ideation: No Goal/Treatment Plan - Goal/Treatment Plan Need for Continued Stay: Remain at risks for inpatient hospitalization, Discharge may exacerbated symptoms Progress Toward Problem(s) and Goals/Treatment Plan: increase haldol 5mg bid and cogentin 0.5 mg bid at current mental status pt is floridly psychotic without insight into illness, referred for screening for involuntary admission , and accepted, [place] [facility] [place] Estimated Date of D/C: 05/21/18
[2018-05-19 09:19] VITALS: BP 109/70; PULSE 80; RESP 18; TEMP 98.1
--- NOTE | 2018-05-19 14:00 | PCM.PYCHDC ---
Mental Status Examination - Mental Status Examination Orientation: Person, Place Memory: Intact Mood: Anxious Affect: Constricted Attention: Poor Concentration: Poor Association: Loose Formal Thought Process: Hallucinations, Paranoia Description of patient's judgement and insight: poor insight and judgment Psychotic Thoughts and Behaviors: pt internally preoccupied, denied command hallucinations Suicidal Ideation: No Current Homicidal Ideation?: No Discharge Summary - Discharge Note Reason for Hospitalization: pt is a 27ys old female previous diagnosis of schizophrenia and cannabis use disorder,, recently discharged from [facility] {2 days ago }, pt presented early AM to ER requesting help for experiencing auditory hallucinations, then after the interview ended she requested to be discharged indicating clearing off of the auditory hallucinations , pt was discharged, however she was brought back by police as she was observed on the street, harassing by passers, intrusively talking to them and exhibiting bizarre and disorganized behavior,In the ER pt reported experiencing auditory hallucinations controlling her body,pt requested to be admitted currently on the unit pt is seen pacing, anxious irritable angry, appears responding to internal stimuli , uncooperative refusing to talk to undersigned requesting to be discharged and signed 48 hours notice to leave pt floridly psychotic , concrete and disorganized thought process, internally preoccupied , no insight into illness denied suicidal or homicidal ideation, denied command hallucinations Consultations:: List each consultation separately and include: 1. Reason for request. 2. Findings. 3. Follow-up Summary of Hospital Course include:: 1. Description of specific treatment plan utilized for patients during their course of treatmen. 2. Summarize the time- course for resolution of acute symptoms and/or regressed behaviors. 3. Describe issues identified and worked on during hospitalization. 4. Describe medication utilized. 5. Describe medical problems identified and treated. 6. Reassessment of suicide risk Summary of Hospital Course: pton admission was requesting to be discharged , signed 48 hour notice internally preoccupied at current mental status pt is floridly psychotic without insight into illness, pt was referred for screening for involuntary admission for medication stabilization and continuity of treatment , [place] [facility] [place] Diagnosis (1) Psychosis Current Visit: Yes Status: Acute - Final Diagnosis (DSM 5) Condition upon Discharge: FAIR DSM 5: schizophrenia disorganized type Disposition: DISCHARGE TO PSYCH HOSPITAL Follow-up Treatment Plan: increase haldol 5mg bid and cogentin 0.5 mg bid at current mental status pt is floridly psychotic without insight into illness, referred for screening for involuntary admission , and accepted, [place] [facility] [place] Antipsychotic Medications Pt discharged on 2 or more routine antipsychotic medications: No
== END 2018-05-19 14:38 | DRG 430 ==
LOC: H.ER 17:03 → H.ERHOLD 18:34 → H.PSYCH 20:28
PROVIDERS: ADMIT Psychiatry & Neurology Psychiatry; ATTEND Psychiatry & Neurology Psychiatry
PROC: GZ51ZZZ Individual Psychotherapy, Behavioral (ICD-10-PCS; 2018-05-10)
PROC: GZHZZZZ Group Psychotherapy (ICD-10-PCS; principal; 2018-05-12)
DX: F20.1 Disorganized schizophrenia (principal); F60.9 Personality disorder, unspecified; Z79.899 Other long term (current) drug therapy; Z87.442 Personal history of urinary calculi; Z91.19 Patient's noncompliance with other medical treatment and regimen; D64.9 Anemia, unspecified; K29.70 Gastritis, unspecified, without bleeding; R45.851 Suicidal ideations; F12.10 Cannabis abuse, uncomplicated

== ENCOUNTER 2018-12-02 06:46 | Emergency (ER) | payer MEDICAID, OTHER ==
[2018-12-02 06:47] VITALS: BMI 24.7
[2018-12-02 06:58] VITALS: O2SAT 98
--- NOTE | 2018-12-02 07:37 | ED PDOC ---
Lower Extremity Pain/Injury Time Seen by Provider: 12/02/18 07:18 Chief Complaint (Nursing): Lower Extremity Problem/Injury Chief Complaint (Provider): Lower Extremity Problem/Injury History Per: Patient History/Exam Limitations: no limitations Onset/Duration Of Symptoms: Days (x21) Additional Complaint(s): 28 y/o female with history of kidney stones presents to ER for evaluation of right big toe ingrown nail associated with pain onset 3 weeks. Patient reports symptoms started after she had pedicure 3 weeks ago. She reports some numbness in toe but denies weakness or taking any medications. Pain to the toe. PMD: non provided Past Medical History Reviewed: Historical Data, Nursing Documentation, Vital Signs Vital Signs: Last Vital Signs Temp 98.2 F 12/02/18 06:52 Pulse 95 H 12/02/18 06:52 Resp 17 12/02/18 06:52 BP 101/60 12/02/18 06:52 Pulse Ox 98 12/02/18 06:52 - Medical History PMH: Anemia, Gastritis, Kidney Stones, Personality Disorder, Schizophrenia Denies: Diabetes, Hepatitis, HTN, Sexually Transmitted Disease - Surgical History Surgical History: No Surg Hx - Family History Family History: States: Unknown Family Hx - Immunization History Hx Tetanus Toxoid Vaccination: Yes (06/03/2013) Hx Influenza Vaccination: No Hx Pneumococcal Vaccination: No - Home Medications Home Medications: Ambulatory Orders Medication Instructions Recorded Cephalexin [Keflex] 500 mg PO QID 7 Days capsule 12/02/18 Ibuprofen [Motrin] 600 mg PO TID 7 Days tab 12/02/18 - Allergies Allergies/Adverse Reactions: Allergies Allergy/AdvReac Type Severity Reaction Status Date / Time latex Allergy RASH Verified 08/05/18 09:07 Latex, Natural Rubber Allergy RASH Verified 08/05/18 09:07 Review of Systems ROS Statement: Except As Marked, All Systems Reviewed And Found Negative Musculoskeletal: Positive for: Foot Pain (Big toe ingrowing nail) Neurological: Positive for: Numbness (of right big toe). Negative for: Weakness Physical Exam - Reviewed Nursing Documentation Reviewed: Yes Vital Signs Reviewed: Yes - Physical Exam Appears: Positive for: Non-toxic, No Acute Distress Head Exam: Positive for: ATRAUMATIC, NORMOCEPHALIC Skin: Positive for: Normal Color, Warm, Dry Neck: Positive for: Normal, Painless ROM, Supple Cardiovascular/Chest: Positive for: Regular Rate, Rhythm. Negative for: Murmur Respiratory: Positive for: Normal Breath Sounds. Negative for: Respiratory Distress Pulses-Dorsalis Pedis (L): 2+ Pulses-Dorsalis Pedis (R): 2+ Extremity: Positive for: Normal ROM, Tenderness (to right big toe medial part of nail. No tenderness of left foot.), Swelling (of right big toe with partial injuried nail; ingrown toe nail), Other (Poor nail hygiene) Neurologic/Psych: Positive for: Alert, Oriented (x3) - ECG O2 Sat by Pulse Oximetry: 98 (RA) Pulse Ox Interpretation: Normal - Progress ED Course And Treament: 856: Podiatry saw pt. They dressed nail and took biopsy. Stable. AAOx3. Pain free. Tolerated po. Fu with podiatry. They want keflex. Medical Decision Making Medical Decision Making: Time: 736 Initial plan: --Motrin 600 mg PO --Urine Scribe Attestation: Documented by Lisa Fong, acting as a scribe for Hilario Caal MD. Provider Scribe Attestation: All medical record entries made by the Scribe were at my direction and personally dictated by me. I have reviewed the chart and agree that the record accurately reflects my personal performance of the history, physical exam, medical decision making, and the department course for this patient. I have also personally directed, reviewed, and agree with the discharge instructions and disposition. Disposition - Clinical Impression Clinical Impression: Ingrown toenail, Cellulitis - Patient ED Disposition Is Patient to be Admitted: No Counseled Patient/Family Regarding: Diagnosis, Need For Followup, Rx Given - Disposition Referrals: Podiatry Clinic [Outside] - 12/03/18 Disposition: Routine/Home Disposition Time: 08:58 Condition: STABLE Additional Instructions: Return if not better in 3 days. Prescriptions: Cephalexin [Keflex] 500 mg PO QID 7 Days capsule Ibuprofen [Motrin] 600 mg PO TID 7 Days tab Instructions: Ingrown Toenail, Cellulitis (Skin Infection), Adult (DC) Forms: [facility] ([place]), [facility] ED School/Work Excuse
[2018-12-02] MEDS ORDERED: Lidocaine 1% Inj (20ml) IJ ONE (08:23)
[2018-12-02] MEDS ORDERED: Lidocaine 1% Inj (20ml) ONE (08:31)
--- NOTE | 2018-12-02 10:16 | CP.PCM.CON ---
History of Present Illness - History of Present Illness History of Present Illness: Podiatry consult note for Dr. Fish 28F with pmhx of anemia and personality disorder presents to ED with right ingrown toenail. States that she has noticed it getting worse over the past two weeks and states that it began to look infected and dirty. States that she had a pedicure in August and since then the nail has become ingrown and the toe has gotten more swollen and painful. States that she takes motrin for pain. States that the pain is constant and she has noticed drainage and crust forming at the inside border of the nail. Denies N/V/F/C/SOB/CP and has no other acute complaints. PMHx: see above PSHx: denies All: latex Past Patient History - Infectious Disease Hx of Infectious Diseases: None - Past Medical History & Family History Past Medical History?: Yes - Past Social History Smoking Status: Current Some Days Smoker - CARDIAC Hx Hypertension: No - PULMONARY Hx Respiratory Disorders: No Hx Tuberculosis: No - HEENT Hx HEENT Problems: Yes Other/Comment: ear lobe laceration - RENAL Hx Kidney Stones: Yes - ENDOCRINE/METABOLIC Hx Endocrine Disorders: No - HEMATOLOGICAL/ONCOLOGICAL Hx Anemia: Yes - INTEGUMENTARY Hx Dermatological Problems: Yes Hx Alexander: Yes (on face from hair removing chemical) - MUSCULOSKELETAL/RHEUMATOLOGICAL Hx Musculoskeletal Disorders: No - GASTROINTESTINAL Hx Gastritis: Yes - GENITOURINARY/GYNECOLOGICAL Hx Sexually Transmitted Disorders: No - PSYCHIATRIC Hx Schizophrenia: Yes - SURGICAL HISTORY Hx Surgeries: No - ANESTHESIA Hx Anesthesia: No Meds Home Medications: Home Medication List Medication Instructions Recorded Confirmed Type Cephalexin [Keflex] 500 mg PO QID 7 Days capsule 12/02/18 Rx Ibuprofen [Motrin] 600 mg PO TID 7 Days tab 12/02/18 Rx Allergies/Adverse Reactions: Allergies Allergy/AdvReac Type Severity Reaction Status Date / Time latex Allergy RASH Verified 08/05/18 09:07 Latex, Natural Rubber Allergy RASH Verified 08/05/18 09:07 Physical Exam - Constitutional Appears: Non-toxic, No Acute Distress - Head Exam Head Exam: ATRAUMATIC, NORMOCEPHALIC - Extremities Exam Additional comments: RLE focused Vasc: DP and PT pulses palpable; cap refill <3 seconds to all digits; temp gradient warm to warm from proximal to distal; edema noted locally at the medial border of the hallux nail Derm: paronychia evidenced at the medial hallux nail border; dry pus and blood present at the nail border, no active drainage, no streaking, erythema present but does not travel; clinical signs of infection at the nail border; no fluctuance but tissue growth is appreciated Ortho: mild pain on palpation at the medial border or the hallux nail secondary to paronychi and ingrown medial border of nail Neuro: gross and protective sensation intact - Neurological Exam Neurological exam: Alert, Oriented x3 - Psychiatric Exam Psychiatric exam: Normal Affect, Normal Mood Results - Vital Signs Recent Vital Signs: Last Vital Signs Temp 98.2 F 12/02/18 06:52 Pulse 95 H 12/02/18 06:52 Resp 17 12/02/18 06:52 BP 101/60 12/02/18 06:52 Pulse Ox 98 12/02/18 09:01 Assessment & Plan - Assessment and Plan (Free Text) Assessment: 28F with pmhx of anemia and personality disorder with right medial border of hallux ingrown nail and paronychia Plan: Patient seen and evaluated Discussed in detail with Dr. Fish Afebrile Partial nail avulsion performed after injection of 1% lidocaine in hallux block fashion Patient tolerate procedure well Soft tissue excised from medial border of hallux nail and sent for pathology Patient rx keflex 500 QID for 7 days and told to keep dressing clean dry and intact F/u at [facility] podiatry clinic in 1 week Thank you for the consult - Date & Time Date: 12/02/18 Time: 10:21
[2018-12-02 13:20] VITALS: BP 108/76; PULSE 76; RESP 18; TEMP 97.9
== END 2018-12-02 09:30 | disposition home or self-care (01) ==
LOC: H.ER 06:46
DX: L60.0 Ingrowing nail (principal); L03.031 Cellulitis of right toe; D64.9 Anemia, unspecified

== ENCOUNTER 2019-01-18 16:01 | Inpatient (IN) | payer MEDICAID, OTHER ==
[2019-01-18 16:01] VITALS: BMI 24.7
--- NOTE | 2019-01-18 17:43 | ED PDOC ---
HPI: Psych/Substance Abuse Time Seen by Provider: 01/18/19 17:42 Chief Complaint (Nursing): Psychiatric Evaluation Chief Complaint (Provider): psych History Per: Patient (28 y/o female here for hearing voices that tell her to beat herself up. States she stopped taking lithium 6 months ago. When asked why prescribed, patient states she was given when admitted. Denies any SI/HI. Denies any drug use.) Past Medical History Reviewed: Historical Data, Nursing Documentation, Vital Signs Vital Signs: Last Vital Signs Temp 98.0 F 01/18/19 16:05 Pulse 70 01/18/19 16:05 Resp 18 01/18/19 16:05 BP 131/70 01/18/19 16:05 Pulse Ox 100 01/18/19 16:05 - Medical History PMH: Anemia, Gastritis, Kidney Stones, Personality Disorder, Schizophrenia Denies: Diabetes, Hepatitis, HTN, Sexually Transmitted Disease - Family History Family History: States: No Known Family Hx - Immunization History Hx Tetanus Toxoid Vaccination: Yes (06/03/2013) Hx Influenza Vaccination: No Hx Pneumococcal Vaccination: No - Home Medications Home Medications: Ambulatory Orders Medication Instructions Recorded Miconazole [Miconazole 7] 100 mg VG DAILY #7 sup 12/29/18 - Allergies Allergies/Adverse Reactions: Allergies Allergy/AdvReac Type Severity Reaction Status Date / Time No Known Allergies Allergy Verified 01/18/19 16:05 Review of Systems ROS Statement: Except As Marked, All Systems Reviewed And Found Negative Physical Exam - Reviewed Nursing Documentation Reviewed: Yes Vital Signs Reviewed: Yes - Physical Exam Appears: Positive for: Well, Non-toxic, No Acute Distress Head Exam: Positive for: ATRAUMATIC, NORMAL INSPECTION, NORMOCEPHALIC Skin: Positive for: Normal Color, Warm, DRY Eye Exam: Positive for: EOMI, Normal appearance, PERRL ENT: Positive for: Normal ENT Inspection Neck: Positive for: Normal, Painless ROM Cardiovascular/Chest: Positive for: Regular Rate, Rhythm Respiratory: Positive for: CNT, Normal Breath Sounds Gastrointestinal/Abdominal: Positive for: Normal Exam, Soft Back: Positive for: Normal Inspection Extremity: Positive for: Normal ROM Neurologic/Psych: Positive for: Alert, Oriented - Laboratory Results Result Diagrams: 01/18/19 18:32 01/18/19 18:32 - ECG O2 Sat by Pulse Oximetry: 100 - Progress ED Course And Treament: SEEN BY CRISIS TO BE ADMITTED TO DR. CHADWICK SCHIZOPHRENIA Disposition - Clinical Impression Clinical Impression: Schizophrenia - Patient ED Disposition Is Patient to be Admitted: Yes - Disposition Disposition Time: 19:35 Condition: FAIR - Pt Status Changed To: Hospital Disposition Of: Inpatient - Admit Certification Admit to Inpatient:: After my assessment, the patient will require hospitalization for at least two midnights. This is because of the severity of symptoms shown, intensity of services needed, and/or the medical risk in this patient being treated as an outpatient.
[2019-01-18 18:37] LABS: BASO % 0.6 % (0.0-2.0); EOS # 0.1 K/uL (0.0-0.7); EOS % 0.9 % (0.0-4.0); HEMOGLOBIN 11.7 g/dL (12.0-16.0); LYMPH # 2.7 K/uL (1.0-4.3); LYMPH % 46.4 % (20.0-40.0); MEAN CELL VOLUME 87.4 fl (81.0-99.0); MEAN CORPUSCULAR HGB CONC 33.2 g/dL (33.0-37.0); MEAN PLATELET VOLUME 7.8 fl (7.2-11.7); MONO # 0.5 K/uL (0.0-0.8); MONO % 8.2 % (0.0-10.0); NEUT # 2.5 K/uL (1.8-7.0); NEUT % 43.9 % (50.0-75.0); RBC 4.03 Mil/uL (3.80-5.20); WHITE BLOOD COUNT 5.7 K/uL (4.8-10.8)
[2019-01-18 18:48] LABS: ALB/GLOB RATIO 1.1 (1.0-2.1); ALBUMIN 3.7 g/dL (3.5-5.0); ALT/SGPT 30 U/L (9-52); AST/SGOT 19 U/L (14-36); BLOOD UREA NITROGEN 12 mg/dl (7-17); CALCIUM 9.3 mg/dL (8.4-10.2); GFR NON-AFRICAN AMERICAN > 60
[2019-01-18 19:38] LABS: BARBITURATES, UR NEGATIVE (NEGATIVE); BENZODIAZEPINES, UR NEGATIVE (NEGATIVE); OPIATES, UR NEGATIVE (NEGATIVE); PHENCYCLIDINE, UR NEGATIVE (NEGATIVE)
[2019-01-18 20:26] LABS: SQUAMOUS EPITHIAL 28 /hpf (0-5); URINE BACTERIA FEW (<OCC); URINE BILIRUBIN SMALL (NEGATIVE); URINE BLOOD NEGATIVE (NEGATIVE); URINE CLARITY CLOUDY (Clear); URINE GLUCOSE (UA) NEG (NEGATIVE); URINE LEUKOCYTE ESTERASE SMALL Leu/uL (Negative); URINE PROTEIN 100 mg/dL (NEGATIVE)
[2019-01-18 20:28] LABS: URINE COLOR YELLOW (YELLOW)
[2019-01-18 22:53] VITALS: O2SAT 99
[2019-01-18] MEDS ORDERED: Alum-Mag Hydrox-Simethicone Susp (30 mL) PO PRN (23:17)
[2019-01-18] MEDS ORDERED: Magnesium Hydroxide Susp 30 ml UD PO PRN (23:17)
[2019-01-18] MEDS ORDERED: DiphenhydrAMINE 50 mg/ml Inj IM PRN (23:17)
--- NOTE | 2019-01-18 23:33 | PCM.BM ---
<Leilani Eller P - Last Filed: 01/18/19 23:28> Treatment Plan Problems - Problems identified on initial assessmt Auditory Hallucinations Date Initiated: 01/18/19 Time Initiated: 23:29 Assessment reference: NA Status: Active Medication nonadherence Date Initiated: 01/18/19 Time Initiated: 23:30 Assessment reference: NA Status: Active Self Care Deficit Date Initiated: 01/18/19 Time Initiated: 23:29 Assessment reference: NA Status: Active Treatment assets and liabiliti Patient Assests: adapts well, cooperative, ADL independent, physically healthy, negotiates basic needs, cognitively intact Patient Liabilities: live alone, financial problems, poor support system, substance abuse - Milieu Protocol Maintain good personal hygiene: daily Encourage regular showers, daily Remind patient to perform daily oral care, daily Assist patient to perform ADL's Conduct patient checks and document Observation sheet: Q15 minutes Maintain personal safety: every shift Educate patient to report safety concerns to staff, every shift Monitor environment for contraband/sharps Medication safety: Monitor for expected outcome, potential side effects: every shift, Assess barriers to learning: every shift, Assess readiness for medication education: every shift <Timothy Duckworth J - Last Filed: 01/19/19 13:04> Family Contact Family involvement: Famliy/SO not involved Family contact: Patient declines to allow family contact at present Family contact name: Pt denied contact. - Goals for Treatment Patient goals for treatment: Pt was able to verbalize with fair insight that she wants help with decreasing her auditory hallucinations and is agreeable to be placed back on antipsychotic medication. Discharge/Continuing Care - Education Needs Education Needs: Patient Medication, Patient Diagnosis/Disease Process, Patient Coping Skills, Patient Community resources, Patient Aftercare Safety Plan - Discharge Discharge Criteria: Tolerates medication w/o severe side effects, Free of paranoid thoughts, Free of agitation, Normal sleep pattern, Ability to care for self, Reduction of target symptoms Discharge to:: Alf - Treatment Team Participation Patient/Family/SO Statement: 01/19/19 13:11 Pt seen in treatment team on 01/19/19. Pt presented as disheveled and odorous. Pt had flat affect and neutral mood. Pt's psychomotor movements were slow and robotic. Pt was able to verbalize that she was feeling distress from her auditory hallucinations telling her that she was an "imbecile, freak and st upid." Pt reported that she has been non-compliant with outpatient services and was able to express that she needed to be re-stabilized on medication. Pt denied current HI/SI and VT hallucinations. Pt is oriented X4. Pt will be re-started on psychotropic medications. Branch Library Clerk will be begin discharge planning with pt later on 01/19. Discussed with Family/SO: No Was Patient/Family/SO present at Treatment Team Meeting: Yes <Anshul Hong - Last Filed: 01/19/19 14:58> - Diagnosis (1) Schizophrenia Status: Acute Interventions: pharmacotherapy 01/19/19 14:58
[2019-01-19 08:23] LABS: HDL CHOLESTEROL 63 MG/DL (30-70)
[2019-01-19 09:34] LABS: LDL CHOLESTEROL < 30 mg/dL (0-129)
--- NOTE | 2019-01-19 10:47 | CP.PCM.CON ---
<Amira Yanezekah - Last Filed: 01/19/19 17:21> History of Present Illness - History of Present Illness History of Present Illness: Pt is a 28 yo F with a pmhx of Schizophrenia, kidney stones, gastritis, anemia presented with auditory hallucinations telling her to harm herself non compliant with Librium for 6 mo, admitted for Schizophrenia. Pt denies depression, anxiety, fevers, chills, headaches, blurry vision, chest pain, SOB, N/V/D/C, dysuria. Pt feels well, no current auditory or visual hallucinations. PMHX:schizophrenia, kidney stones, gastritis, anemia Allergies: NKDA Meds: Non compliant with psych meds Surg Hx: Denies Social Hx: Denies EtOh, tobacco. Marijuana use. Review of Systems - Psychiatric Psychiatric: Auditory Hallucinations Past Patient History - Infectious Disease Hx of Infectious Diseases: None - Past Medical History & Family History Past Medical History?: Yes - Past Social History Smoking Status: Current Some Days Smoker Alcohol: None Drugs: Denies - CARDIAC Hx Hypertension: No - PULMONARY Hx Respiratory Disorders: No Hx Tuberculosis: No - HEENT Hx HEENT Problems: Yes Other/Comment: ear lobe laceration - RENAL Hx Kidney Stones: Yes - ENDOCRINE/METABOLIC Hx Endocrine Disorders: No - HEMATOLOGICAL/ONCOLOGICAL Hx Anemia: Yes - INTEGUMENTARY Hx Dermatological Problems: Yes Hx Alexander: Yes (on face from hair removing chemical) - MUSCULOSKELETAL/RHEUMATOLOGICAL Hx Musculoskeletal Disorders: No - GASTROINTESTINAL Hx Gastritis: Yes - GENITOURINARY/GYNECOLOGICAL Hx Sexually Transmitted Disorders: No - PSYCHIATRIC Hx Substance Use: Yes (THC) - SURGICAL HISTORY Hx Surgeries: No - ANESTHESIA Hx Anesthesia: No Meds Allergies/Adverse Reactions: Allergies Allergy/AdvReac Type Severity Reaction Status Date / Time No Known Allergies Allergy Verified 01/18/19 16:05 - Medications Medications: Current Medications Acetaminophen (Tylenol 325mg Tab) 650 mg PO Q4 PRN PRN Reason: pain level 4-7 Al Hydrox/Mg Hydrox/Simethicone (Maalox Plus 30 Ml) 30 ml PO Q4 PRN PRN Reason: Dyspepsia Diphenhydramine HCl (Benadryl) 50 mg IM Q6 PRN PRN Reason: Extrapyramidal S/S Unable PO Diphenhydramine HCl (Benadryl) 50 mg PO Q6 PRN PRN Reason: Extrapyramidal Symptoms Last Admin: 01/18/19 23:31 Dose: 50 mg Diphenhydramine HCl (Benadryl) 50 mg PO HS PRN PRN Reason: Sleep Haloperidol (Haldol) 5 mg PO Q4 PRN PRN Reason: Agitation Last Admin: 01/18/19 23:31 Dose: 5 mg Haloperidol Lactate (Haldol) 5 mg IM Q4 PRN PRN Reason: Agitation, Unable to Take PO Lorazepam (Ativan) 2 mg IM Q8H PRN PRN Reason: Anxiety/Agitation,Unable PO Lorazepam (Ativan) 1 mg PO Q8H PRN PRN Reason: Anxiety/Agitation Magnesium Hydroxide (Milk Of Magnesia) 30 ml PO HS PRN PRN Reason: Constipation Physical Exam - Constitutional Appears: Non-toxic, No Acute Distress - Head Exam Head Exam: ATRAUMATIC, NORMAL INSPECTION, NORMOCEPHALIC - Eye Exam Eye Exam: EOMI - ENT Exam ENT Exam: Mucous Membranes Moist - Respiratory Exam Respiratory Exam: Clear to Auscultation Bilateral - Cardiovascular Exam Cardiovascular Exam: REGULAR RHYTHM, +S1, +S2 - GI/Abdominal Exam GI & Abdominal Exam: Normal Bowel Sounds, Soft - Extremities Exam Extremities exam: Positive for: normal inspection - Neurological Exam Neurological exam: Alert, Oriented x3 Results - Vital Signs Recent Vital Signs: Last Vital Signs Temp 98.1 F 01/19/19 09:24 Pulse 83 01/19/19 09:24 Resp 19 01/19/19 09:24 BP 97/65 L 01/19/19 09:24 Pulse Ox 99 01/18/19 22:58 - Labs Result Diagrams: 01/18/19 18:32 01/18/19 18:32 Labs: Laboratory Results - last 24 hr 01/18/19 01/18/19 01/18/19 18:32 18:32 18:32 WBC 5.7 RBC 4.03 Hgb 11.7 L Hct 35.3 MCV 87.4 D MCH 29.0 MCHC 33.2 RDW 15.0 H Plt Count 280 MPV 7.8 Neut % (Auto) 43.9 L Lymph % (Auto) 46.4 H [place] % (Auto) 8.2 Eos % (Auto) 0.9 Baso % (Auto) 0.6 Neut # (Auto) 2.5 Lymph # (Auto) 2.7 [place] # (Auto) 0.5 Eos # (Auto) 0.1 Baso # (Auto) 0.0 Sodium 137 Potassium 3.6 Chloride 105 Carbon Dioxide 20 L Anion Gap 16 BUN 12 Creatinine 0.6 L Est GFR ( Amer) > 60 Est GFR (Non-Af Amer) > 60 Random Glucose 85 Calcium 9.3 Total Bilirubin 1.0 AST 19 ALT 30 Alkaline Phosphatase 85 Total Protein 7.1 Albumin 3.7 Globulin 3.3 Albumin/Globulin Ratio 1.1 Triglycerides Cholesterol LDL Cholesterol Direct HDL Cholesterol Thyroxine (T4) TSH 3rd Generation Urine Color Urine Clarity Urine pH Ur Specific [place] Urine Protein Urine Glucose (UA) Urine Ketones Urine Blood Urine Nitrate Urine Bilirubin Urine Urobilinogen Ur Leukocyte Esterase Urine RBC (Auto) Urine Microscopic WBC Ur Squamous Epith Cells Urine Bacteria Urine Opiates Screen Urine Methadone Screen Ur Barbiturates Screen Ur Phencyclidine Scrn Ur Amphetamines Screen U Benzodiazepines Scrn [place] < 0.2 L U Oth Cocaine Metabols U Cannabinoids Screen Alcohol, Quantitative < 10 01/18/19 01/18/19 01/19/19 18:52 20:04 07:54 WBC RBC Hgb Hct MCV MCH MCHC RDW Plt Count MPV Neut % (Auto) Lymph % (Auto) [place] % (Auto) Eos % (Auto) Baso % (Auto) Neut # (Auto) Lymph # (Auto) [place] # (Auto) Eos # (Auto) Baso # (Auto) Sodium Potassium Chloride Carbon Dioxide Anion Gap BUN Creatinine Est GFR ( Amer) Est GFR (Non-Af Amer) Random Glucose Calcium Total Bilirubin AST ALT Alkaline Phosphatase Total Protein Albumin Globulin Albumin/Globulin Ratio Triglycerides 24 D Cholesterol 89 LDL Cholesterol Direct < 30 HDL Cholesterol 63 Thyroxine (T4) 7.08 TSH 3rd Generation 0.58 Urine Color Yellow Urine Clarity Cloudy Urine pH 5.0 Ur Specific [place] 1.038 H Urine Protein 100 Urine Glucose (UA) Neg Urine Ketones Trace Urine Blood Negative Urine Nitrate Negative Urine Bilirubin Small Urine Urobilinogen 4.0 H Ur Leukocyte Esterase Small Urine RBC (Auto) 2 Urine Microscopic WBC 13 H Ur Squamous Epith Cells 28 H Urine Bacteria Few H Urine Opiates Screen Negative Urine Methadone Screen Negative Ur Barbiturates Screen Negative Ur Phencyclidine Scrn Negative Ur Amphetamines Screen Negative U Benzodiazepines Scrn Negative [place] U Oth Cocaine Metabols Negative U Cannabinoids Screen Positive H Alcohol, Quantitative Assessment & Plan - Assessment and Plan (Free Text) Assessment: Pt is a 28 yo F with a pmhx of Schizophrenia, kidney stones, gastritis, anemia presented with auditory hallucinations telling her to harm herself non compliant with Librium for 6 mo, admitted for Schizophrenia Schizophrenia Risperidone 2mg BID Cognetin 1mg bid Benadryl, Haldol, Ativan PRN Trazodone 100mg HS encourage medication compliance supportive therapy UPT- negative F/u RPR, CBC, EKG in AM Hx of Anemia Chronic, stable Hg 11.L CXR- negative F/u CBC in AM Hx of Gastritis c/w Maalox dyspepsia Hx of Kidney stone chronic, stable U/A- Trace ketones, Small LE, WBC 13, few bacteria Diet Regular DVT PPX Ambulating well - Date & Time Date: 01/19/19 Time: 10:47 <Milena Duarte - Last Filed: 01/20/19 09:07> Meds - Medications Medications: Current Medications Acetaminophen (Tylenol 325mg Tab) 650 mg PO Q4 PRN PRN Reason: pain level 4-7 Al Hydrox/Mg Hydrox/Simethicone (Maalox Plus 30 Ml) 30 ml PO Q4 PRN PRN Reason: Dyspepsia Benztropine Mesylate (Cogentin) 1 mg PO BID [place] Last Admin: 01/19/19 17:57 Dose: 1 mg Diphenhydramine HCl (Benadryl) 50 mg IM Q6 PRN PRN Reason: Extrapyramidal S/S Unable PO Diphenhydramine HCl (Benadryl) 50 mg PO Q6 PRN PRN Reason: Extrapyramidal Symptoms Last Admin: 01/18/19 23:31 Dose: 50 mg Diphenhydramine HCl (Benadryl) 50 mg PO HS PRN PRN Reason: Sleep Haloperidol (Haldol) 5 mg PO Q4 PRN PRN Reason: Agitation Last Admin: 01/18/19 23:31 Dose: 5 mg Haloperidol Lactate (Haldol) 5 mg IM Q4 PRN PRN Reason: Agitation, Unable to Take PO Lorazepam (Ativan) 2 mg IM Q8H PRN PRN Reason: Anxiety/Agitation,Unable PO Lorazepam (Ativan) 1 mg PO Q8H PRN PRN Reason: Anxiety/Agitation Magnesium Hydroxide (Milk Of Magnesia) 30 ml PO HS PRN PRN Reason: Constipation Risperidone (Risperdal M-Tab) 2 mg PO BID [facility] Last Admin: 01/19/19 17:56 Dose: 2 mg Trazodone HCl (Desyrel) 100 mg PO HS [facility] Last Admin: 01/19/19 21:49 Dose: 100 mg Results - Vital Signs Recent Vital Signs: Last Vital Signs Temp 98.1 F 01/19/19 09:24 Pulse 83 01/19/19 09:24 Resp 19 01/19/19 09:24 BP 97/65 L 01/19/19 09:24 Pulse Ox 99 01/18/19 22:58 - Labs Result Diagrams: 01/20/19 05:35 01/18/19 18:32 Labs: Laboratory Results - last 24 hr 01/19/19 01/19/19 01/19/19 07:54 07:54 07:54 WBC RBC Hgb Hct MCV MCH MCHC RDW Plt Count MPV Neut % (Auto) Lymph % (Auto) [place] % (Auto) Eos % (Auto) Baso % (Auto) Neut # (Auto) Lymph # (Auto) [place] # (Auto) Eos # (Auto) Baso # (Auto) Hemoglobin A1c 5.4 LDL Cholesterol Direct < 30 RPR Nonreactive 01/20/19 05:35 WBC 5.6 RBC 3.94 Hgb 11.5 L Hct 34.1 MCV 86.4 MCH 29.1 MCHC 33.7 RDW 15.0 H Plt Count 274 MPV 8.2 Neut % (Auto) 49.9 L Lymph % (Auto) 38.1 [place] % (Auto) 10.0 Eos % (Auto) 1.5 Baso % (Auto) 0.5 Neut # (Auto) 2.8 Lymph # (Auto) 2.1 [place] # (Auto) 0.6 Eos # (Auto) 0.1 Baso # (Auto) 0.0 Hemoglobin A1c LDL Cholesterol Direct RPR Attending/Attestation - Attestation I have personally seen and examined this patient.: Yes I have fully participated in the care of the patient.: Yes I have reviewed all pertinent clinical information: Yes Notes (Text): 01/20/19 09:07 Agree with findings and plan as above.
--- NOTE | 2019-01-19 14:46 | PCM.PSYCH ---
Initial Psychiatric Evaluation - Initial Psychiatric Evaluation Type of Admission: Voluntary Legal Status: Capacity Chief Complaint (in patient's own words): i hear voices putting me down History of Present Illness and Precipitating Events: pt is 28ys old female with previous diagnosis of schizophrenia presented to ER experiencing auditory hallucinations putting her down and became worried about hurting herself pt has not been compliant with medications or follow up, has been decompensating with poor sleep, not attending to her ADL'S or personal hygiene, pt started having auditory hallucinations, putting her down, and making fun of her, became increasingly depressed with passive suicidal ideation on the unit pt presents with thought blocking, internally preoccupied , responding to internal stimuli, denied command hallucinations, denied active thoughts of self harm on theunit Current Medications: Active Medications Generic Name Dose Route Start Last Admin Trade Name Freq PRN Reason Stop Dose Admin Acetaminophen 650 mg 01/18/19 23:17 Tylenol 325mg Tab PO Q4 PRN pain level 4-7 Al Hydrox/Mg Hydrox/Simethicone 30 ml 01/18/19 23:17 Maalox Plus 30 Ml PO Q4 PRN Dyspepsia Benztropine Mesylate 1 mg 01/19/19 17:00 Cogentin PO BID [place] Diphenhydramine HCl 50 mg 01/18/19 23:17 Benadryl IM Q6 PRN Extrapyramidal S/S Unable PO Diphenhydramine HCl 50 mg 01/18/19 23:17 01/18/19 23:31 Benadryl PO 50 mg Q6 PRN Administration Extrapyramidal Symptoms Diphenhydramine HCl 50 mg 01/18/19 23:20 Benadryl PO HS PRN Sleep Haloperidol 5 mg 01/18/19 23:17 01/18/19 23:31 Haldol PO 5 mg Q4 PRN Administration Agitation Haloperidol Lactate 5 mg 01/18/19 23:17 Haldol IM Q4 PRN Agitation, Unable to Take PO Lorazepam 2 mg 01/18/19 23:17 Ativan IM Q8H PRN Anxiety/Agitation,Unable PO Lorazepam 1 mg 01/18/19 23:17 Ativan PO Q8H PRN Anxiety/Agitation Magnesium Hydroxide 30 ml 01/18/19 23:17 Milk Of Magnesia PO HS PRN Constipation Risperidone 2 mg 01/19/19 17:00 Risperdal M-Tab PO BID [place] Trazodone HCl 100 mg 01/19/19 22:00 Desyrel PO HS [place] Past Psychiatric History - Past Psychiatric History Explanation of prior treatment: multiple hospitalizations, hx of non compliance History of ETOH/Drug Use: cannabis abuse Pertinent Medical Hx (Current Medical&Sleep Prob, Allergies): Allergies Allergy/AdvReac Type Severity Reaction Status Date / Time No Known Allergies Allergy Verified 01/18/19 16:05 Mental Status Examination - Personal Presentation Personal Presentation: Looks stated age Additional comments: disheveled unkempt - Affect Affect: Constricted - Motor Activity Motor Activity: Psychomotor Agitation - Reliability in Providing Information Reliability in Providing Information: Poor, due to alteration in thoughts - Speech Speech: Disorganized - Mood Mood: Anxious - Formal Thought Process Formal Thought Process: Hallucinations, Delusions, Paranoia, Loosening of associations - Hallucinations/Delusions Hallucinations: Auditory - Obsessions/Compulsions Obsessions: No Compulsions: No - Cognitive Functions Orientation: Person, Place Sensorium: Alert Attention/Concentration: Easily distracted Abstract Thinking: [place] Estimate of Intelligence: Below average Judgement: Imparied, as evidence by: Poor judgement, Imparied, as evidence by: Lack of insight into illness - Risk Risk: Diminished functioning - Strength & Assets Inventory Strength & Assets Inventory: Life experience - Limitations Additional comments: poor social support DSM 5 DX - DSM 5 DSM 5 Diagnosis: schizophrenia cannabis abuse - Recommended/Plan of Treatment Treatment Recommendations and Plan of Treatment: start risperidone 2mg bid cognetin 1mg bid encourage medication compliance supportive therapy
--- NOTE | 2019-01-19 16:25 | RAD ---
Date of service: 01/18/2019 HISTORY: NEEDS UPREG COMPARISON: Frontal chest radiograph 04/23/2018. FINDINGS: LUNGS: Improved inspiratory volume noted bilaterally. No infiltrate identified bilaterally. PLEURA: No significant pleural effusion identified, no pneumothorax apparent. CARDIOVASCULAR: No aortic atherosclerotic calcification present. Normal cardiac size. No pulmonary vascular congestion. OSSEOUS STRUCTURES: No significant abnormalities. VISUALIZED UPPER ABDOMEN: Normal. OTHER FINDINGS: None. IMPRESSION: Improved inspiratory volume bilaterally. No interval infiltrate, pleural effusion, pneumothorax or pulmonary vascular congestion identified.
[2019-01-19] MEDS: Risperidone M TAB 2 MG PO SCH (17:56)
[2019-01-20 06:46] LABS: BASO % 0.5 % (0.0-2.0); EOS # 0.1 K/uL (0.0-0.7); EOS % 1.5 % (0.0-4.0); HEMOGLOBIN 11.5 g/dL (12.0-16.0); LYMPH # 2.1 K/uL (1.0-4.3); LYMPH % 38.1 % (20.0-40.0); MEAN CELL VOLUME 86.4 fl (81.0-99.0); MEAN CORPUSCULAR HEMOGLOBIN 29.1 pg (27.0-31.0); MEAN CORPUSCULAR HGB CONC 33.7 g/dL (33.0-37.0); MEAN PLATELET VOLUME 8.2 fl (7.2-11.7); MONO # 0.6 K/uL (0.0-0.8); NEUT # 2.8 K/uL (1.8-7.0); NEUT % 49.9 % (50.0-75.0); RBC 3.94 Mil/uL (3.80-5.20); WHITE BLOOD COUNT 5.6 K/uL (4.8-10.8)
[2019-01-20] MEDS: Risperidone M TAB 2 MG PO SCH ×2 (12:30→17:03)
--- NOTE | 2019-01-20 15:23 | PCM.PYCHPN ---
Psychiatric Progress Note - Psychiatric Progress Note Patient seen today, length of contact: pt evaluated discussed with team chart reviewed Patient Chief Complaint: I still hear the voices and I think there are people under my bed Problems Identified/Issues Discussed: pt evaluated , presenting with disorganized thought process, delusions of persecution, internally preoccupied, laughing inappropriately , has limited insight into illness, denied command hallucinations, denied active thoughts of self harm on the unit Medical Problems: multiple hospitalizations, hx of non compliance DSM 5 Symptoms Update: schizophrenia paranoid type cannabis abuse Medication Change: Yes (increase risperidone gradually) Medical Record Reviewed: Yes Mental Status Examination - Cognitive Function Orientation: Person, Place Memory: Intact Attention: WNL Concentration: Poor Association: Loose Fund of Knowledge: Poor Decription of patient's judgement and insights: poor insight and judgment - Mood Mood: Anxious - Affect Affect: Constricted - Speech Speech: Soft - Formal Thought Process Formal Thought Process: Hallucinations, Delusions, Paranoia, Loosening of associations Psychotic Thoughts and Behaviors: pt internally preoccupied - Suicidal Ideation Suicidal Ideation: No - Homicidal Ideation Homicidal Ideation: No Goal/Treatment Plan - Goal/Treatment Plan Need for Continued Stay: Severe depression anxiety, Discharge may exacerbated symptoms Progress Toward Problem(s) and Goals/Treatment Plan: risperidone 2mg bid increase gradually and change to risperidone consta cognetin 1mg bid encourage medication compliance supportive therapy
[2019-01-21] MEDS: Risperidone M TAB 2 MG PO SCH (08:56)
--- NOTE | 2019-01-21 16:20 | PCM.PYCHPN ---
Psychiatric Progress Note - Psychiatric Progress Note Patient seen today, length of contact: pt evaluated discussed with team chart reviewed Patient Chief Complaint: I am tired Problems Identified/Issues Discussed: pt evaluated , continues to be psychotic, internally preoccupied ,presenting with disorganized thought process, delusions of persecution, laughing inappropriately , has limited insight into illness, denied command hallucinations, denied active thoughts of self harm on the unit Medical Problems: multiple hospitalizations, hx of non compliance DSM 5 Symptoms Update: schizophrenia cannabis abuse Medication Change: Yes (increase risperidone gradually) Medical Record Reviewed: Yes Mental Status Examination - Cognitive Function Orientation: Person, Place Memory: Intact Attention: WNL Concentration: Poor Association: Loose Fund of Knowledge: Poor Decription of patient's judgement and insights: poor insight and judgment - Mood Mood: Anxious - Affect Affect: Constricted - Speech Speech: Soft - Formal Thought Process Formal Thought Process: Hallucinations, Delusions, Paranoia, Loosening of associations Psychotic Thoughts and Behaviors: pt internally preoccupied - Suicidal Ideation Suicidal Ideation: No - Homicidal Ideation Homicidal Ideation: No Goal/Treatment Plan - Goal/Treatment Plan Need for Continued Stay: Severe depression anxiety, Discharge may exacerbated symptoms Progress Toward Problem(s) and Goals/Treatment Plan: increase risperidone 3mg bid and change to risperidone consta cognetin 1mg bid encourage medication compliance supportive therapy
[2019-01-21] MEDS: Risperidone M tab 1 MG PO SCH (17:31)
--- NOTE | 2019-01-22 09:11 | PCM.PYCHPN ---
Psychiatric Progress Note - Psychiatric Progress Note Patient seen today, length of contact: pt evaluated discussed with team chart reviewed Patient Chief Complaint: pt has remained very internally preoccupied and disorganized and still hears voices telling her that she is ugly.pt remains with poor insight and need further stabilization. p Medication Change: Yes (increase risperidone gradually) Medical Record Reviewed: Yes Mental Status Examination - Cognitive Function Orientation: Person, Place Memory: Intact Attention: WNL Concentration: Poor Association: Loose Fund of Knowledge: Poor - Mood Mood: Anxious - Affect Affect: Constricted - Speech Speech: Soft - Formal Thought Process Formal Thought Process: Hallucinations, Delusions, Paranoia, Loosening of associations - Suicidal Ideation Suicidal Ideation: No - Homicidal Ideation Homicidal Ideation: No Goal/Treatment Plan - Goal/Treatment Plan Need for Continued Stay: Severe depression anxiety, Discharge may exacerbated symptoms Progress Toward Problem(s) and Goals/Treatment Plan: will continue to titrate risperdal as needed to stabilize the psychosis and en sommer pt jn therapy and groups. D/c plans as per dr evangelista.
[2019-01-22] MEDS: Risperidone M tab 1 MG PO SCH ×2 (09:16→17:29)
[2019-01-23] MEDS: Risperidone M tab 1 MG PO SCH ×2 (09:06→17:38)
--- NOTE | 2019-01-23 13:25 | PCM.PYCHPN ---
Psychiatric Progress Note - Psychiatric Progress Note Patient seen today, length of contact: pt evaluated discussed with team chart reviewed Patient Chief Complaint: pt reports decrease in hallucinations and no longer feels depressed and anxious and does not believe that she is ugly but pt still remains internally preoccupied with poor insight .pt has remained very internally preoccupied and disorganized and still hears voices telling her that she is ugly.pt remains with poor insight and need further stabilization. p Medication Change: Yes (increase risperidone gradually) Medical Record Reviewed: Yes Mental Status Examination - Cognitive Function Orientation: Person, Place Memory: Intact Attention: WNL Concentration: Poor Association: Loose Fund of Knowledge: Poor - Mood Mood: Anxious - Affect Affect: Constricted - Speech Speech: Soft - Formal Thought Process Formal Thought Process: Hallucinations, Delusions, Paranoia, Loosening of associations - Suicidal Ideation Suicidal Ideation: No - Homicidal Ideation Homicidal Ideation: No Goal/Treatment Plan - Goal/Treatment Plan Need for Continued Stay: Severe depression anxiety, Discharge may exacerbated symptoms Progress Toward Problem(s) and Goals/Treatment Plan: will continue to titrate risperdal as needed to stabilize the psychosis and engage pt jn therapy and groups. D/c plans as per dr evangelista.
[2019-01-24] MEDS: Risperidone M tab 1 MG PO SCH ×2 (09:10→17:53)
[2019-01-24] MEDS ORDERED: risperiDONE Consta 37.5 mg/2 ml Syr IM ONE (11:47)
--- NOTE | 2019-01-24 12:42 | PCM.PYCHPN ---
Psychiatric Progress Note - Psychiatric Progress Note Patient seen today, length of contact: pt evaluated discussed with team chart reviewed Patient Chief Complaint: I am doing fine Problems Identified/Issues Discussed: pt evaluated , , continues to be superficially cooperative and guarded with under productive speech, pt however attending more to her ADL'S , attending groups, and appears less internally preoccupied, reported clearing off of the auditory hallucinations, psychoeducation about medication compliance provided and patient agreed to be started on risperidone consta for better compliance on discharge Medical Problems: multiple hospitalizations, hx of non compliance DSM 5 Symptoms Update: schizophrenia cannabis abuse Medication Change: Yes (start risperidone consta ) Medical Record Reviewed: Yes Mental Status Examination - Cognitive Function Orientation: Person, Place Memory: Intact Attention: WNL Concentration: WNL Association: WNL Fund of Knowledge: Poor - Mood Mood: Anxious - Affect Affect: Constricted - Speech Speech: Soft - Formal Thought Process Formal Thought Process: Hallucinations, Delusions, Paranoia, Loosening of associations - Suicidal Ideation Suicidal Ideation: No - Homicidal Ideation Homicidal Ideation: No Goal/Treatment Plan - Goal/Treatment Plan Need for Continued Stay: Severe depression anxiety, Discharge may exacerbated symptoms Progress Toward Problem(s) and Goals/Treatment Plan: risperidone 3mg bid and ist dose of risperidone consta 37.5mg IM today cognetin 1mg bid encourage medication compliance supportive therapy
[2019-01-25] MEDS: Risperidone M tab 1 MG PO SCH ×2 (09:15→17:19)
--- NOTE | 2019-01-25 13:35 | PCM.PYCHPN ---
Psychiatric Progress Note - Psychiatric Progress Note Patient seen today, length of contact: pt evaluated discussed with team chart reviewed Patient Chief Complaint: I am feeling alright Problems Identified/Issues Discussed: pt evaluated , observed attending groups,interacting more with staff and other peers, attending to her ADL'S reported clearing off of the auditory hallucinations, no reported side effects of risperidone consta, denied any current suicidal or homicidal ideation Medical Problems: multiple hospitalizations, hx of non compliance DSM 5 Symptoms Update: schizophrenia Medication Change: No Medical Record Reviewed: Yes Mental Status Examination - Cognitive Function Orientation: Person, Place Memory: Intact Attention: WNL Concentration: WNL Association: WNL Fund of Knowledge: Poor Decription of patient's judgement and insights: poor insight and judgment - Mood Mood: Anxious - Affect Affect: Constricted - Speech Speech: Soft - Formal Thought Process Formal Thought Process: Paranoia, Other (concree thought process ) - Suicidal Ideation Suicidal Ideation: No - Homicidal Ideation Homicidal Ideation: No Goal/Treatment Plan - Goal/Treatment Plan Need for Continued Stay: Severe depression anxiety, Discharge may exacerbated symptoms Progress Toward Problem(s) and Goals/Treatment Plan: risperidone 3mg bid and ist dose of risperidone consta 37.5mg IM 01/24/19 cognetin 1mg bid encourage medication compliance supportive therapy
[2019-01-25 16:17] VITALS: RESP 19
[2019-01-26] MEDS: Risperidone M tab 1 MG PO SCH (08:27)
[2019-01-26 10:17] VITALS: BP 92/54; PULSE 76; TEMP 96.9
--- NOTE | 2019-01-26 12:14 | PCM.PYCHDC ---
Mental Status Examination - Mental Status Examination Orientation: Person, Place Memory: Intact Mood: Neutral Affect: Constricted Speech: Appropriate Attention: WNL Concentration: WNL Association: WNL Fund of Knowledge: Poor Formal Thought Process: No Impairment Description of patient's judgement and insight: poor insight and judgment Psychotic Thoughts and Behaviors: pt on discharge denied perceptual disturbances , non eleicited Suicidal Ideation: No Current Homicidal Ideation?: No Discharge Summary - Discharge Note Reason for Hospitalization: pt is 28ys old female with previous diagnosis of schizophrenia presented to ER experiencing auditory hallucinations putting her down and became worried about hurting herself pt has not been compliant with medications or follow up, has been decompensating with poor sleep, not attending to her ADL'S or personal hygiene, pt started having auditory hallucinations, putting her down, and making fun of her, became increasingly depressed with passive suicidal ideation on the unit pt presents with thought blocking, internally preoccupied , responding to internal stimuli, denied command hallucinations, denied active thoughts of self harm on theunit Consultations:: List each consultation separately and include: 1. Reason for request. 2. Findings. 3. Follow-up Summary of Hospital Course include:: 1. Description of specific treatment plan utilized for patients during their course of treatmen. 2. Summarize the time-c ourse for resolution of acute symptoms and/or regressed behaviors. 3. Describe issues identified and worked on during hospitalization. 4. Describe medication utilized. 5. Describe medical problems identified and treated. 6. Reassessment of suicide risk Summary of Hospital Course: pton admission was psychotic disorganized , not attending to ADL'S internally preoccupied pt was started on risperidone . it was increased to 3mg bid psychoeducation provided about importance of compliance, pt was started on risperidone consta 37.5mg IM 1st dose given 01/25/19 nreported side effects of medications, pt was compliant with treatment attended groups, on discharge pt denied any perceptual disturbances non elicited denied suicidal or homicidal ideation follow up arranged at [facility] outpatient services - Diagnosis (1) Schizophrenia Current Visit: Yes Status: Acute - Final Diagnosis (DSM 5) Condition upon Discharge: FAIR DSM 5: schizophrenia Disposition: HOME/ ROUTINE Follow-up Treatment Plan: risperidone 3mg bid and ist dose of risperidone consta 37.5mg IM 01/24/19 cognetin 1mg bid encourage medication compliance supportive therapy Prescriptions/Medication Reconciliation: Benztropine [Cogentin] 1 mg PO BID 30 Days #60 tab Risperidone [Risperdal M-TAB] 3 mg PO BID 30 Days #60 odt traZODone [Desyrel] 100 mg PO HS 30 Days #30 tab - Antipsychotic Medications Pt discharged on 2 or more routine antipsychotic medications: No
== END 2019-01-26 14:54 | disposition home or self-care (01) | DRG 430 ==
LOC: H.ER 16:01 → H.ERHOLD 19:28 → H.PSYCH 23:12
PROVIDERS: ADMIT Psychiatry & Neurology Psychiatry; ATTEND Psychiatry & Neurology Psychiatry
PROC: GZHZZZZ Group Psychotherapy (ICD-10-PCS; principal; 2019-01-18)
PROC: GZ58ZZZ Individual Psychotherapy, Cognitive-Behavioral (ICD-10-PCS; 2019-01-18)
DX: F20.0 Paranoid schizophrenia (principal); F12.10 Cannabis abuse, uncomplicated; Z91.14 Patient's other noncompliance with medication regimen; Z91.19 Patient's noncompliance with other medical treatment and regimen; K29.70 Gastritis, unspecified, without bleeding; D64.9 Anemia, unspecified; F17.210 Nicotine dependence, cigarettes, uncomplicated; Z87.442 Personal history of urinary calculi